=== PATIENT | male | born 1995 | race Caucasian/White ===

== ENCOUNTER 2019-04-28 11:44 | Outpatient (CLI) | payer BC, SELFPAY ==
--- NOTE | ~2019-04-28 | XR_ITS ---
EXAMINATION: XR chest 2V DATE: 04/28/2019 12:05 INDICATION: Cough. TECHNIQUE: Frontal and lateral views of the chest were obtained. COMPARISON: Chest 2 views 05/08/2014 FINDINGS: The chest demonstrates clear lungs without pneumonia, pleural effusion, or pneumothorax. Th e heart size is normal. IMPRESSION: 1. No acute cardiopulmonary disease. Reviewed, dictated and finalized at location A. ING SUPERVISOR
[2019-04-28 11:59] LABS: Basophils Absolute Auto 0.05 K/mm3 (0.00-0.10); Basophils Percent Auto 0.8 % (0.0-1.0); Eosinophils Absolute Auto 0.15 K/mm3 (0.02-0.50); Eosinophils Percent Auto 2.5 % (1.0-6.0); Hematocrit 46.2 % (40.0-54.0); Hemoglobin 15.8 g/dL (14.0-18.0); Immature Granulocyte Absolute 0.04 K/mm3 (0.00-0.00); Immature Granulocyte Percent A 0.7 % (0.0-0.0); Lymphocytes Absolute Auto 1.05 K/mm3 (1.10-4.50); Lymphocytes Percent Auto 17.8 % (18.0-42.0); Mean Corpuscular HGB Conc 34.2 g/dL (32.0-36.0); Mean Corpuscular Hemoglobin 27.4 pg (27.0-31.0); Mean Corpuscular Volume 80.2 fL (78.0-102.0); Monocytes Absolute Auto 0.61 K/mm3 (0.10-0.90); Monocytes Percent Auto 10.3 % (2.0-11.0); Neutrophils Percent Auto 67.9 % (50.0-70.0); Platelet Count Result 286 K/mm3 (150-420); Red Blood Count 5.76 M/mm3 (4.70-6.10); Red Cell Distribution Width 12.6 % (11.6-14.4); White Blood Count 5.9 K/mm3 (4.8-10.8)
[2019-04-28 13:27] LABS: Anion Gap 15.4 mmol/L (7-16); Blood Urea Nitrogen 7 mg/dL (7-18); Calcium 8.8 mg/dL (8.5-10.1); Carbon Dioxide 26 mmol/L (21-32); Chloride 101 mmol/L (98-108); Estimated Glomerular Filt Rate > 60; Glucose 198 mg/dL (70-99); Osmolality Calculated 290 mOsm/kg (285-295); Potassium 4.4 mmol/L (3.5-5.1); Sodium 138 mmol/L (136-145)
== END 2019-04-28 11:45 | disposition home or self-care (01) ==
PROVIDERS: PCP Family Medicine; Visit Provider Family Medicine
DX: J01.80 Other acute sinusitis (principal); R05 Cough
CPT/HCPCS: 36415; 71046; 80048; 85025

== ENCOUNTER 2019-09-16 14:45 | Outpatient (CLI) | payer BC, SELFPAY | END 2019-09-16 14:46 | disposition home or self-care (01) | LOC: CHSLAB 14:47 | PROVIDERS: PCP Family Medicine; Visit Provider Family Medicine | DX: J02.9 Acute pharyngitis, unspecified (principal) | CPT/HCPCS: 87081; 87880 ==

== ENCOUNTER 2019-11-19 10:18 | Outpatient (CLI) | payer BC, SELFPAY ==
[2019-11-19 10:50] LABS: Creatinine Urine 83.37 mg/dL (40-278)
[2019-11-19 10:56] LABS: Microalbumin Urine Random 391.9 mg/L
== END 2019-11-19 10:19 | disposition home or self-care (01) ==
PROVIDERS: PCP Family Medicine; Visit Provider Internal Medicine Endocrinology, Diabetes & Metabolism
DX: E10.69 Type 1 diabetes mellitus with other specified complication (principal); E78.5 Hyperlipidemia, unspecified
CPT/HCPCS: 82043

== ENCOUNTER 2019-12-27 14:44 | Outpatient (CLI) | payer BC, SELFPAY ==
[2019-12-29 11:16] LABS: SARS-CoV-2 RNA PCR Negative
== END 2019-12-27 14:45 | disposition home or self-care (01) ==
LOC: CHSLAB 14:46
PROVIDERS: PCP Family Medicine; Visit Provider Family Medicine
DX: Z20.828 Contact with and (suspected) exposure to other viral communicable diseases (principal)
CPT/HCPCS: 87635; C9803; U0003

== ENCOUNTER 2020-03-26 15:35 | Outpatient (CLI) | payer BC, SELFPAY ==
[2020-03-26 16:04] LABS: Basophils Absolute Auto 0.07 K/mm3 (0.00-0.10); Basophils Percent Auto 0.7 % (0.0-1.0); Eosinophils Absolute Auto 0.04 K/mm3 (0.02-0.50); Eosinophils Percent Auto 0.4 % (1.0-6.0); Hematocrit 47.2 % (40.0-54.0); Hemoglobin 15.8 g/dL (14.0-18.0); Immature Granulocyte Absolute 0.04 K/mm3 (0.00-0.00); Immature Granulocyte Percent A 0.4 % (0.0-0.0); Lymphocytes Percent Auto 27.2 % (18.0-42.0); Mean Corpuscular HGB Conc 33.5 g/dL (32.0-36.0); Mean Corpuscular Hemoglobin 27.3 pg (27.0-31.0); Mean Corpuscular Volume 81.7 fL (78.0-102.0); Monocytes Absolute Auto 0.55 K/mm3 (0.10-0.90); Monocytes Percent Auto 5.5 % (2.0-11.0); Neutrophils Absolute Auto 6.5 K/mm3 (1.7-7.2); Neutrophils Percent Auto 65.8 % (50.0-70.0); Platelet Count Result 376 K/mm3 (150-420); Red Blood Count 5.78 M/mm3 (4.70-6.10); Red Cell Distribution Width 12.8 % (11.6-14.4); White Blood Count 9.9 K/mm3 (4.8-10.8)
[2020-03-26 17:02] LABS: Alanine Aminotransferase 34 U/L (16-63); Albumin Level 3.5 g/dL (3.4-5.0); Alkaline Phosphatase 120 U/L (46-116); Anion Gap 7 mmol/L (8-16); Aspartate Amino Transferase 14 U/L (15-37); Bilirubin,Total 0.4 mg/dL (0.00-1.00); Blood Urea Nitrogen 8 mg/dL (7-18); Calcium 8.9 mg/dL (8.5-10.1); Carbon Dioxide 29 mmol/L (21-32); Chloride 101 mmol/L (98-108); Estimated Glomerular Filt Rate > 60; Glucose 170 mg/dL (70-99); Osmolality Calculated 286 mOsm/kg (285-295); Sodium 137 mmol/L (136-145); Thyroid Stimulating Hormone 1.82 uIU/mL (0.36-3.74); Total Protein 7.5 g/dL (6.4-8.2)
== END 2020-03-26 15:36 | disposition home or self-care (01) ==
PROVIDERS: PCP Family Medicine; Visit Provider Internal Medicine Endocrinology, Diabetes & Metabolism
DX: E10.69 Type 1 diabetes mellitus with other specified complication (principal); E78.5 Hyperlipidemia, unspecified
CPT/HCPCS: 36415; 80053; 84443; 85025

== ENCOUNTER 2020-03-29 16:55 | Outpatient (CLI) | payer BC, SELFPAY | END 2020-03-29 16:56 | disposition home or self-care (01) | LOC: CHSLAB 16:56 | PROVIDERS: PCP Family Medicine; Visit Provider Internal Medicine Endocrinology, Diabetes & Metabolism | DX: E10.69 Type 1 diabetes mellitus with other specified complication (principal); E78.5 Hyperlipidemia, unspecified | CPT/HCPCS: 36415; 82530 ==

== ENCOUNTER 2020-04-24 21:59 | Emergency (ER) | payer BC, SELFPAY ==
--- NOTE | ~2020-04-24 | XR_ITS ---
EXAMINATION: XR knee RT 3V DATE: 04/24/2020 22:41 INDICATION: Right knee pain TECHNIQUE: Five views of the right knee were obtained. COMPARISON: None. FINDINGS: Alignment is normal. No fracture or osteochondral lesion. Joint spaces are normal with no e rosions. No joint effusion/synovitis. Soft tissues are unremarkable. IMPRESSION: 1. No acute osseous abnormality. Reviewed, dictated and finalized at location A. TIC SURGERY ASSISTANT
[2020-04-24 22:11] VITALS: BP 143/106; PULSE 97; RESP 20; TEMP 36.7; O2SAT 97
--- NOTE | 2020-04-24 22:21 | ED.LOWEXIN ---
HPI - Extremity Injury (Lower) General Chief Complaint: Extremity Injury, Lower Stated Complaint: right knee pain Time Seen by Provider: 04/24/20 22:15 Source: patient Mode of arrival: ambulatory Limitations: no limitations History of Present Illness HPI Narrative: 24-year-old man comes in today complaining of right knee pain with ambulation started yesterday after he slipped on some ice and fell upon it. Patient states that it feels warm and swollen and that he has an abrasion on the front. He denies any other injury. He denies prior knee injury or pain. complaint: knee injury Onset (ago): day(s) (1) Injury: Right: knee Type of Injury: blunt Place: home Severity: moderate Relieving factors: rest Exacerbating factors: weight bearing Context: fall and direct blow Associated symptoms: swelling and able to partially bear weight Other symptoms: none Related Data Home Medications Medication Instructions Recorded Confirmed atorvastatin 80 mg PO DAILY 04/24/20 04/24/20 insulin aspart U-100 See Rx Instructions .ROUTE .COMPLEX 04/24/20 04/24/20 losartan 100 mg PO DAILY 04/24/20 04/24/20 Allergies Allergy/AdvReac Type Severity Reaction Status Date / Time No Known Allergies Allergy Unverified 04/24/20 22:16 Review of Systems Constitutional: Constitutional: Denies chills and Denies fever(s) ENT: Denies nasal congestion and Denies sore throat Cardiovascular: Cardiovascular: Denies chest pain and Denies radiating jaw, neck or arm pain Respiratory: Respiratory: Denies cough, Denies dyspnea and Denies wheezing Gastrointestinal: Gastrointestinal: Denies abdominal pain, Denies nausea and Denies vomiting Musculoskeletal: Musculoskeletal: Denies back pain, Reports arthralgias and Reports joint swelling Integumentary/Breasts: Skin/Breast: Denies pruritus, Denies rash and Denies skin ulcer Neurologic: Denies vertigo, Denies dizziness and Denies syncope Hematologic/Lymphatic: Hematologic/Lymphatic: Denies easy bleeding and Denies easy bruising Allergic/Immunologic: Allergic/Immunologic: Denies lip swelling and Denies throat swelling PMFSH Past Medical History Medical History Dyslipidemia Hypertension Type 1 diabetes mellitus Social History Social History (Updated 04/24/20 @ 22:25 by Neal Flores MD) Smoking status: Current every day smoker Alcohol intake: current Substance use: current Substance use type: marijuana Living arrangements: with family Gender identity (if verbalized by the patient): Male Exam Const: General: healthy appearing, no acute distress and alert Nutritional Appearance: obese Orientation/consciousness: patient oriented x3 Limitations: no limitations Other: Mild acute distress. Eyes: Conjunctivae: conjunctivae normal Pupils: Equal, round and reactive pupils present EOM: EOMs intact bilaterally Resp: Effort & Inspection: normal respiratory effort and not labored Auscultation: clear to auscultation bilaterally, no rales, no rhonchi and no wheezes Cardio: Rate: regular rate Rhythm: regular rhythm Heart sounds: no murmurs Skin: General skin exam: normal color, no jaundice and no pallor Rashes: no rashes Neuro: General: patient oriented x3, moves all extremities and no focal motor deficits Cranial nerves: Yes Nystagmus not present Gait exam (Neuro): Normal gait present Extrem: General: normal to inspection and no clubbing, cyanosis or edema Other: Tenderness palpation the right knee at the anterior joint line medial and lateral. Only mild tenderness palpation the right patella. There is no laxity to varus or valgus stress and negative Britni's test. There is bruising and tenderness over the right proximal tibia anteriorly. Psych: Appearance: grossly normal and well kempt Mental Status: mental status grossly normal Affect: normal affect Attitude: cooperative Thought content: Yes Normal thought cont
[2020-04-24 22:52] VITALS: BP 146/90; PULSE 87; RESP 20; TEMP 37.1; O2SAT 97
--- NOTE | 2020-04-24 22:56 | PC.NURSE ---
jennifer wrap to right knee.
== END 2020-04-24 23:07 | disposition home or self-care (01) ==
PROVIDERS: Emergency Provider Emergency Medicine; PCP Family Medicine
DX: S83.91XA Sprain of unspecified site of right knee, initial encounter (principal); W00.0XXA Fall on same level due to ice and snow, initial encounter
CPT/HCPCS: 73562; 99283

== ENCOUNTER 2020-11-09 10:34 | Outpatient (CLI) | payer BC, SELFPAY ==
[2020-11-09 11:37] LABS: Alanine Aminotransferase 30 U/L (16-63); Albumin Level 3.6 g/dL (3.4-5.0); Alkaline Phosphatase 129 U/L (46-116); Anion Gap 8 mmol/L (8-16); Aspartate Amino Transferase 10 U/L (15-37); Bilirubin,Total 0.6 mg/dL (0.00-1.00); Blood Urea Nitrogen 12 mg/dL (7-18); Calcium 8.8 mg/dL (8.5-10.1); Carbon Dioxide 30 mmol/L (21-32); Chloride 99 mmol/L (98-108); Estimated Glomerular Filt Rate > 60; Glucose 185 mg/dL (70-99); Osmolality Calculated 288 mOsm/kg (285-295); Potassium 3.9 mmol/L (3.5-5.1); Sodium 137 mmol/L (136-145); Total Protein 7.4 g/dL (6.4-8.2)
[2020-11-12 17:05] LABS: Testosterone Free 50.9 pg/mL (35.0-155.0); Testosterone Total 356 ng/dL (250-1100)
== END 2020-11-09 10:35 | disposition home or self-care (01) ==
PROVIDERS: PCP Family Medicine; Visit Provider Internal Medicine Endocrinology, Diabetes & Metabolism
DX: E10.65 Type 1 diabetes mellitus with hyperglycemia (principal)
CPT/HCPCS: 36415; 80053; 82088; 84244; 84402; 84403

== ENCOUNTER 2022-03-22 16:11 | Emergency (ER) | payer BC, SELFPAY ==
[2022-03-22] VITALS (20 sets, daily range): BP systolic 139–171; BP diastolic 74–103; PULSE 90–105; RESP 20; TEMP 36.2; O2SAT 93–97
--- NOTE | 2022-03-22 16:17 | ED.DIZZY ---
HPI - Dizziness General Chief Complaint: Dizziness Stated Complaint: dizziness, headache Time Seen by Provider: 03/22/22 16:16 Source: patient Mode of arrival: ambulatory History of Present Illness HPI Narrative: 26-year-old male with a history of hypertension, diabetes mellitus type 1 on an insulin pump presents to the ER with a 4 hour history of -- dizziness- The patient felt lightheaded. No vertigo. -- headache -- not feeling well since early hours of the morning. -- Palpitation -- sweating the blood sugar on in the ER was noted to be 58. No prior episodes of hypoglycemia. The patient was noted to have acute bronchitis with difficulty breathing after Johanna for which he was treated with amoxicillin and steroids. His steroids finished yesterday. MD elicited complaint: dizziness and lightheadedness Pertinent past history: hypoglycemia Onset (ago): hour(s) ( Started 16 hours ago.) Timing: gradual onset Severity: mild Description: lightheadedness, off-balance and near-syncope History of similar symptoms: No Exacerbating factors: nothing Relieving factors: nothing Associated symptoms: denies other symptoms Related Data Home Medications Medication Instructions Recorded Confirmed atorvastatin 80 mg tablet 80 mg PO DAILY 04/24/20 03/22/22 insulin aspart U-100 100 unit/mL See Rx Instructions .Route .COMPLEX 04/24/20 03/22/22 subcutaneous solution losartan 100 mg tablet 100 mg PO DAILY 04/24/20 03/22/22 chlorthalidone 25 mg tablet 25 mg PO DAILY 03/22/22 03/22/22 omeprazole 40 mg capsule,delayed 40 mg PO DAILY 03/22/22 03/22/22 release tirzepatide 2.5 mg/0.5 mL 2.5 mg subcut WEEKLY 03/22/22 03/22/22 subcutaneous pen injector (Mounjaro) varenicline 0.5 mg (11)-1 mg (42) See Rx Instructions .Route .COMPLEX 03/22/22 03/22/22 tablets in a dose pack Allergies Allergy/AdvReac Type Severity Reaction Status Date / Time No Known Allergies Allergy Verified 03/22/22 16:28 Review of Systems Review of Systems: All systems reviewed & are unremarkable except as noted in HPI and below Constitutional: Constitutional: Reports as per HPI and Reports no additional constitutional complaints Comments: weakness, lightheadedness diaphoresis now resolved Eyes: Eyes: Reports as per HPI and Reports no additional eye complaints ENT: Reports system reviewed and no additional complaints, except as documented and Reports as per HPI Cardiovascular: Cardiovascular: Reports as per HPI, Reports no additional cardiovascular complaints and Reports rapid heart rate Respiratory: Respiratory: Reports as per HPI and Reports no additional respiratory complaints Gastrointestinal: Gastrointestinal: Reports as per HPI and Reports no additional gastrointestinal complaints Genitourinary: Genitourinary: Reports no additional male genitourinary complaints and Reports as per HPI Musculoskeletal: Musculoskeletal: Reports no additional musculoskeletal complaints and Reports as per HPI Integumentary/Breasts: Skin/Breast: Reports system reviewed and no additional complaints, except as docu and Reports as per HPI Neurologic: Reports system reviewed and no additional complaints, except as documented and Reports as per HPI Psychiatric: Psychiatric: Reports no additional psychiatric complaints and Reports as per HPI Endocrine: Endocrine: Reports no additional endocrine complaints and Reports as per HPI Hematologic/Lymphatic: Hematologic/Lymphatic: Reports no additional hematologic/lymphatic complaints and Reports as per HPI Allergic/Immunologic: Allergic/Immunologic: Reports no additional allergic/immunologic complaints and Reports as per HPI [facility] Past Medical History Medical History Dyslipidemia Hypertension Type 1 diabetes mellitus Social History Social History Smoking status: Current every day smoker Alcohol intake:
[2022-03-22 16:47] LABS: Basophils Percent Auto 0.9 % (0.0-1.0); Eosinophils Absolute Auto 0.05 K/mm3 (0.02-0.50); Eosinophils Percent Auto 0.4 % (1.0-6.0); Hematocrit 45.6 % (40.0-54.0); Immature Granulocyte Absolute 0.06 K/mm3 (0.00-0.00); Immature Granulocyte Percent A 0.5 % (0.0-0.0); Lymphocytes Absolute Auto 2.97 K/mm3 (1.10-4.50); Lymphocytes Percent Auto 26.3 % (18.0-42.0); Mean Corpuscular HGB Conc 32.9 g/dL (32.0-36.0); Mean Corpuscular Hemoglobin 26.6 pg (27.0-31.0); Mean Corpuscular Volume 80.9 fL (78.0-102.0); Mean Platelet Volume 9.9 fl (8.7-11.0); Monocytes Percent Auto 5.3 % (2.0-11.0); Neutrophils Absolute Auto 7.5 K/mm3 (1.7-7.2); Neutrophils Percent Auto 66.6 % (50.0-70.0); Platelet Count Result 338 K/mm3 (150-420); Red Blood Count 5.64 M/mm3 (4.70-6.10); Red Cell Distribution Width 13.1 % (11.6-14.4); White Blood Count 11.3 K/mm3 (4.8-10.8)
--- NOTE | 2022-03-22 16:47 | PC.NURSE ---
PT REPORTS HE IS FEELING LESS FOGGY AND CAN THINK BETTER. SANDWICH, CHIPS, COTTAGE CHEESE, AND MILK PROVIDED. PT IS AWAITING LAB RESULTS AT THIS TIME. VSS PER MONITOR. WILL CONTINUE TO MONITOR.
--- NOTE | 2022-03-22 16:49 | PC.NURSE ---
PT INSULIN PUMP WAS SHUT OFF UPON TRIAGE.
[2022-03-22 17:03] LABS: Glucose Point of Care 100 mg/dl (65-105)
[2022-03-22 17:05] LABS: Alanine Aminotransferase 18 U/L (16-63); Albumin Level 3.1 g/dL (3.4-5.0); Alkaline Phosphatase 99 U/L (46-116); Aspartate Amino Transferase < 10 U/L (15-37); Bilirubin,Total 0.3 mg/dL (0.00-1.00); Blood Urea Nitrogen 8 mg/dL (7-18); Calcium 8.4 mg/dL (8.5-10.1); Carbon Dioxide 29 mmol/L (21-32); Estimated CRCL calculation 156 ml/min; Estimated Glomerular Filt Rate > 60; Glucose 74 mg/dL (70-99); Total Protein 7.3 g/dL (6.4-8.2)
--- NOTE | 2022-03-22 18:00 | PC.NURSE ---
URINE SPECIMEN OBTAINED AND SENT TO LAB. PT IS RESTING ON STRETCHER WITH LIGHTS OFF. NAD NOTED. PT REPORTS HE IS FEELING MUCH BETTER. WILL CONTINUE TO MONITOR.
[2022-03-22 18:04] LABS: Add Urine Microscopic? YES; Appearance Urine Clear (Clear); Bilirubin Urine Negative (Negative); Blood Urine 1+ (Negative); Color Urine Light Yellow (Yellow); Glucose Urine UA Negative (Negative); Ketones Urine Negative (Negative); Leukocyte Esterase Ur Negative LEU/UL (Negative); Nitrate Urine Negative (Negative); Protein Urine 2+ (Negative); Specific Grav Ur <= 1.005 (1.010-1.020); Urobilinogen Urine 0.2 mg/dL (0.2-1.0); pH Urine 6.5 (5.0-8.0)
[2022-03-22 18:16] LABS: Osmolality Calculated 285 mOsm/kg (285-295); Potassium 3.4 mmol/L (3.5-5.1); Sodium 139 mmol/L (136-145)
[2022-03-22 18:17] LABS: Anion Gap 9 mmol/L (8-16); Chloride 101 mmol/L (98-108)
[2022-03-22 18:43] LABS: Bacteria Urine Trace /hpf; RBC Urine 0-2 /hpf (0-2); Squamous Epithelial Cell Urine Rare /hpf (Few); WBC Urine 0-3 /hpf (0-3)
[2022-03-22 18:55] LABS: Glucose Point of Care 205 mg/dl (65-105)
[2022-03-22] MEDS: POTASSIUM CHLORIDE 20 MEQ TABLET 40 MEQ PO (18:58)
== END 2022-03-22 19:00 | disposition home or self-care (01) ==
PROVIDERS: Emergency Provider Internal Medicine Critical Care Medicine; PCP Family Medicine
DX: E10.649 Type 1 diabetes mellitus with hypoglycemia without coma (principal); I10 Essential (primary) hypertension; E78.5 Hyperlipidemia, unspecified; F17.200 Nicotine dependence, unspecified, uncomplicated; Z79.4 Long term (current) use of insulin; Z96.41 Presence of insulin pump (external) (internal)
CPT/HCPCS: 36415; 80053; 81001; 82948; 85025; 99283; A9270

== ENCOUNTER 2023-09-21 21:46 | Emergency (ER) | payer BC, SELFPAY ==
--- NOTE | ~2023-09-21 | XR_ITS ---
XR chest 1V portable Ordering provider: Rodolfo Zendejas MD History: 28 years Male with . shortness of breath. . Comparison: April 28, 2019 FINDINGS: MEDIASTINUM: The cardiac silhouette is not enlarged. LUNGS: No infiltrates, effusions or pneumothorax. Minimal interstitial changes bilaterally. OTHER: No free air under the diaphragm. IMPRESSION: Minimal interstitial changes bilaterally. Pneumonitis cannot be excluded. Clinical correlation advise d. Reviewed, dictated and finalized at location A. IMPRESSION: Minimal interstitial changes bilaterally. Pneumonitis cannot be excluded. Clini amrita correlation advised.
[2023-09-21 21:47] VITALS: BP 109/91; PULSE 99; RESP 19; TEMP 36.1; O2SAT 98
[2023-09-21 22:00] VITALS: BP 138/92; PULSE 92; RESP 20; O2SAT 98
--- NOTE | 2023-09-21 22:02 | ECG_ITS ---
Test Date: 2023-09-21 22:12:27 Measurements Intervals [place] Rate: 86 P: 30 MN: 168 QRS: 40 QRSD: 90 T: 38 QT: 339 QTc: 406 Interpretive Statements SINUS RHYTHM NONSPECIFIC ST ELEVATION IN ANTEROLAT/INF LEADS BORDERLINE ECG No previous ECG available for comparison Electronically Signed On 09-22-2023 08:55:20 CDT by Chuy Stiles D.O.
[2023-09-21 22:10] LABS: Basophils Absolute Auto 0.09 K/mm3 (0.00-0.10); Basophils Percent Auto 0.7 % (0.0-1.0); Eosinophils Percent Auto 0.8 % (1.0-6.0); Hematocrit 45.4 % (40.0-54.0); Hemoglobin 15.3 g/dL (14.0-18.0); Immature Granulocyte Absolute 0.06 K/mm3 (0.00-0.00); Immature Granulocyte Percent A 0.5 % (0.0-0.0); Lymphocytes Absolute Auto 3.64 K/mm3 (1.10-4.50); Lymphocytes Percent Auto 29.5 % (18.0-42.0); Mean Corpuscular HGB Conc 33.7 g/dL (32-36); Mean Corpuscular Hemoglobin 26.8 pg (27.0-31.0); Mean Corpuscular Volume 79.6 fL (78.0-102.0); Monocytes Percent Auto 5.7 % (2.0-11.0); Neutrophils Absolute Auto 7.76 K/mm3 (1.70-7.20); Neutrophils Percent Auto 62.8 % (50.0-70.0); Platelet Count Result 347 K/mm3 (150-420); Red Cell Distribution Width 12.9 % (11.6-14.4); White Blood Count 12.4 K/mm3 (4.8-10.8)
[2023-09-21 22:26] LABS: Alanine Aminotransferase 22 U/L (16-63); Alkaline Phosphatase 137 U/L (46-116); Anion Gap 9 mmol/L (4-12); Aspartate Amino Transferase 18 U/L (15-37); Bilirubin,Total 0.4 mg/dL (0.00-1.00); Blood Urea Nitrogen 9 mg/dL (7-18); Calcium 8.6 mg/dL (8.5-10.1); Carbon Dioxide 27 mmol/L (21-32); Chloride 98 mmol/L (98-108); Estimated CRCL calculation 156 ml/min; Estimated Glomerular Filt Rate > 60; Glucose 253 mg/dL (70-99); NT Pro B Type Natriuretic Pept 59 pg/mL (0-125); Osmolality Calculated 285 mOsm/kg (285-295); Sodium 134 mmol/L (136-145); Total Protein 7.5 g/dL (6.4-8.2); Troponin I < 4.0 ng/L (0.00-60.4)
[2023-09-21 22:27] LABS: Potassium 3.8 mmol/L (3.5-5.1)
--- NOTE | 2023-09-21 22:44 | ED.ARRPALP ---
HPI - Arrhythmia/Palpitations General Chief Complaint: Arrhythmia/Palpitations Stated Complaint: heart palpitations/ shortness of breath Source: patient Mode of arrival: ambulatory Limitations: no limitations History of Present Illness HPI narrative: patient is a 28-year-old male with a significant past medical history that presents today with palpitations. He states that he today was sitting there and felt too different times arrhythmias and had some shortness of breath during the [place] has. He says he has had these in the past before last time this happened was about a year ago. He was worried because the arrhythmia as he said they lasted around 5-15 seconds and then he had a little bit of shortness of breath associated with it. He wanted to get checked out to make sure his heart is okay. complaint: skipped beats and palpitations Onset (ago): hour(s) Duration: now resolved Severity: mild Context: occurred during rest Associated symptoms: denies other symptoms Related Data Home Medications Medication Instructions Recorded Confirmed atorvastatin 80 mg tablet 80 mg PO DAILY 04/24/20 09/21/23 insulin aspart U-100 100 unit/mL See Rx Instructions .Route .COMPLEX 04/24/20 09/21/23 subcutaneous solution losartan 100 mg tablet 100 mg PO DAILY 04/24/20 09/21/23 chlorthalidone 25 mg tablet 25 mg PO DAILY 03/22/22 09/21/23 omeprazole 40 mg capsule,delayed 40 mg PO DAILY 03/22/22 09/21/23 release tirzepatide 2.5 mg/0.5 mL 2.5 mg subcut WEEKLY 03/22/22 09/21/23 subcutaneous pen injector (Tl) varenicline 0.5 mg (11)-1 mg (42) See Rx Instructions .Route .COMPLEX 03/22/22 09/21/23 tablets in a dose pack Allergies Allergy/AdvReac Type Severity Reaction Status Date / Time No Known Allergies Allergy Verified 09/21/23 21:58 Review of Systems Review of Systems: All systems reviewed & are unremarkable except as noted in HPI and below Constitutional: Constitutional: Reports as per HPI Eyes: Eyes: Reports no additional eye complaints ENT: Reports system reviewed and no additional complaints, except as documented Cardiovascular: Cardiovascular: Reports as per HPI Respiratory: Respiratory: Reports as per HPI Gastrointestinal: Gastrointestinal: Reports no additional gastrointestinal complaints Genitourinary: Genitourinary: Reports no additional male genitourinary complaints Musculoskeletal: Musculoskeletal: Reports no additional musculoskeletal complaints Integumentary/Breasts: Skin/Breast: Reports system reviewed and no additional complaints, except as docu Neurologic: Reports system reviewed and no additional complaints, except as documented Psychiatric: Psychiatric: Reports no additional psychiatric complaints Endocrine: Endocrine: Reports no additional endocrine complaints Hematologic/Lymphatic: Hematologic/Lymphatic: Reports no additional hematologic/lymphatic complaints Allergic/Immunologic: Allergic/Immunologic: Reports no additional allergic/immunologic complaints [facility] Past Medical History Medical History Dyslipidemia Hypertension Type 1 diabetes mellitus Social History Social History Smoking status: Current every day smoker Alcohol intake: current Substance use: current Substance use type: marijuana Living arrangements: with family Gender identity (if verbalized by the patient): Male Exam Const: General: healthy appearing Nutritional Appearance: well nourished Orientation/consciousness: patient oriented x3 HENMT: Head: normal to inspection Ears: external ears normal Face/Nose/Sinus: Normal external nose present Face and sinus: normal facial exam Eyes: Conjunctivae: conjunctivae normal Pupils: Equal, round and reactive pupils present EOM: EOMs intact bilaterally Neck: Neck: normal visual inspection Chest: Chest palpation & inspection: normal inspec
[2023-09-21 22:50] VITALS: BP 134/87; PULSE 94; RESP 20; O2SAT 95
--- NOTE | 2023-09-21 22:50 | PC.NURSE ---
urine taken to lab by tech. Daniela dark color, foul odor, cloudy
== END 2023-09-21 23:03 | disposition home or self-care (01) ==
PROVIDERS: Emergency Provider Family Medicine; PCP Family Medicine
DX: I49.3 Ventricular premature depolarization (principal); I49.9 Cardiac arrhythmia, unspecified; E78.5 Hyperlipidemia, unspecified; I10 Essential (primary) hypertension; E10.9 Type 1 diabetes mellitus without complications; Z79.899 Other long term (current) drug therapy; Z79.4 Long term (current) use of insulin; F17.200 Nicotine dependence, unspecified, uncomplicated
CPT/HCPCS: 36415; 71045; 80053; 83880; 84484; 85025; 93005; 99284

== ENCOUNTER 2024-11-28 16:16 | Outpatient (CLI) | payer OTHER, SELFPAY ==
--- NOTE | ~2024-11-28 | XR_ITS ---
EXAMINATION: XR chest 2V, 11/28/2024 16:45 CDT HISTORY: Lt. sided chest pain/ SOB x2 months COMPARISON: No comparisons available. Technique: 2 views obtained. Findings: The lungs are clear, no effusion. No pneumothorax. Heart is normal size. Mediastinal and hilar contours are within normal limits. Bony thorax no acute abnormality. Impression: No acute cardiopulmonary abnormality. Reviewed, dictated and finalized at location P. Impression: No acute cardiopulmonary abnormality.
--- OUTSIDE RECORDS SUMMARY | 2024-11-28 16:22 | XMS_ITS | Clinical Summary ---
Author Organization [facility] Address [address] [place] [address] Care Team Providers Care Art Department Head Name Role Phone Judd Patrick MD Primary Care Provider [phone] Source Comments [facility],non-owned Affiliates and Associated Physician Practices is amultiple site organization consisting of ambulatory clinics and hospital sitesin [place], [place], [place] and [place]. This disclosure is being madepursuant to the Care Everywhere program and may not contain all information available regarding this patient. Last updated 17.[facility] Allergies No known active allergies Medications * Be aware that medications may not be up to date on this document. Alwaysverify current medications with the patient. Blood Glucose Monitoring Suppl (ONE TOUCH ULTRA MINI) W/DEVICE KITIndications:Type I (juvenile type) diabetes mellitus without mention of complication, not stated as uncontrolled (HCC) Use 1 Each 4 times daily. 1 Kit 1 013 Active clonazePAM (KLONOPIN) 0.5 MG tablet Take 1 mg by mouth 2 times daily Active acetone,urine, (KETOSTIX) stripIndications:Diabet es mellitus type 1, uncontrolled Use as needed (use when blood sugar is greater than 250 or when ill. ) 100 Strip 11 015 Active Alcohol Swabs 70 %Indications:Diabetes mellitus type 1, uncontrolled Use one for one use up to four times a day 100 Each 1 015 Active insulin glargine (LANTUS) vialIndications:Diabete s mellitus type 1, uncontrolled Inject 70 units at noon daily or as directed. 3 Vial 11 Active insulin lispro (HUMALOG KWIKPEN) penIndications:Diabetes mellitus type 1, uncontrolled Inject 20 units at lunch and 30 units at dinner or as directed. Must call to schedule an appointment before further refills. 2 Box 11 Active Insulin Pen Needle (BD PEN NEEDLE KRISTOFER U/F) 32G X 4 MM MISCIndications:Diabete s mellitus type 1, uncontrolled Use 1 Each as needed For use with injections 3-6 times daily. 200 Each Active ONETOUCH ULTRA TEST STRIPS test stripIndications:Diabet es mellitus type 1, uncontrolled Use for blood glucose monitoring 5-9 times/day. 200 Strip Active ONETOUCH DELICA LANCETS 33G MISCIndications:Diabete s mellitus type 1, uncontrolled Use 1 Each 4 times daily with meals 200 Each Active Blood Glucose Monitoring Suppl (ONE TOUCH ULTRA MINI) W/DEVICE KIT Use for blood glucose monitoring. 1 Kit 1 Active insulin lispro (HUMALOG) vialIndications:Type 1 diabetes mellitus with persistent microalbuminuria (HCC) To use in insulin pump, 120 units daily 4 Vial 11 Active atorvastatin (LIPITOR) 10 MG tabletIndications:Hyper cholesterolemia with hypertriglyceridemia Take 1 Tab by mouth at bedtime 30 Tab 0 016 Active enalapril (VASOTEC) 10 MG tabletIndications:Type 1 diabetes mellitus with persistent microalbuminuria (HCC) Take 1 Tab by mouth once daily 30 Tab 4 Active LATUDA 80 MG tablet TAKE 1 TABLET BY MOUTH EVERY EVENING WITH FOOD 0 Active traZODone (DESYREL) 100 MG tablet TAKE 1/2 TO 1 TABLET BY MOUTH AT BEDTIME NEEDED FOR INSOMNIA 0 Active hydrOXYzine pamoate (VISTARIL) 50 MG capsule TAKE ONE CAPSULE BY MOUTH TWICE A DAY NEEDED FOR ANXIETY 0 Active Blood Glucose Monitoring Suppl (FREESTYLE LITE) LANETTE Use to test blood sugar 5-9 times a day or as directed. 1 Device 1 Active FREESTYLE LITE STRIPS test strip Use to test blood sugar 5-9 times a day or as directed. 200 Strip 5 Active FREESTYLE LANCETS MISC Use 5-9 daily. 200 Each 5 016 Active glucagon (GLUCAGON EMERGENCY) injection Inject 1 mg into muscle as needed 2 Kit 0 Active LANTUS vial To use in the event of pump failure. 1 Vial 1 Active Insulin Syringe-Needle U-100 (BD INSULIN SYRINGE ULTRAFINE) 31G X 15/64 1 ML syringesIndications:Unc ontrolled type 1 diabetes mellitus without complication Use to administer Lantus once daily or as directed. 100 Syringe 017 Active Active Problems Problem Noted Date Diagnosed Date Diabetes mellitus type 1, uncontrolled 5 Knee pain 12/09/2013 Chest pain 02/13/2013 Hypercholesterolemia 10/15/2012 Overview (06/19/2014): [place] poorly controlled type I diabetes mellitus; euthyroid. Assessment & Plan (09/11/2014 11:14 AM CDT): 1. Atorvastatin 10 mg daily. 2. Return appointment in two months. Assessment & Plan (06/19/2014 3:33 PM CDT): 1. Atorvastatin 10 mg daily. 2. Return appointment in two months. Assessment & Plan (12/10/2013 9:46 PM CDT): Lipitor daily Assessment & Plan (12/01/2013 4:00 PM CDT): 1. Atorvastatin 10 mg daily. 2. Fasting lipid profile in two months before next office appointment. 3. Low fat diet. Type 1 diabetes mellitus 06/12/2001 Overview (09/29/2015): Diagnosed 06/12/2001 Microalbuminuria: Mar, 2012 - spot urine microalbumin/creat 116 mg/g (< 30); Oct, 2012 - spot urine microalbumin/creat 220 mg/g (< 30) and hypertension - started enalapril 5 mg daily. Assessment & Plan (09/11/2014 11:17 AM CDT): Lantus 70 units at noon Novolog/humalo units at lunch; 30 units at supper Mealtime correction: 1 unit Novolog/Humalog for every 50 mg/dL over 150 mg/dL. Blood glucose target range: 70-150 mg/dL Insulin injections given by: self Insulin injection sites: arm(s), lower leg(s) Avoid giving insulin injections in the abdominal wall - lipohypertrophied areas Consistent carbohydrate counting meal planning (gluten free no) Avoid/minimize between meal snacking without taking insulin. Per the [place] [employer] practice guidelines [Diabetes Care 2015 38 (suppl 1): S1-S94], people with type 1 diabetes mellitus on multiple-dose insulin or insulin pump therapy should perform SMBG prior to meals and snacks, occasionally post-prandial, at bedtime, prior to exercise, when they suspect low blood glucose, after treating low blood glucose until they are normoglycemic, and prior to critical tasks such as driving. Record home blood glucose records in a logbook and bring this logbook to each office visit. Obtain and wear medic alert identification at all times. Schedule appointment for annual eye exam: no; Last eye exam: June 2014 Influenza immunization: not done (at this office visit) Follow-up by telephone (office number: [phone], option #4 or fax number: [phone]) in 2 weeks to review Zain's interval home blood glucose records and make any additional insulin dose adjustments. Return appointment in 2 months Enalapril 5 mg daily. Contact adult corn crop supervisor at in [place], [place] to schedule an outpatient appointment in 1-4 months. Assessment & Plan (06/19/2014 3:21 PM CDT): Lantus 60 units at 12 noon Humalo units at lunch and 30 units at supper Blood glucose target range: 70-150 mg/dL Insulin injections given by: self Insulin injection sites: abdominal wall Avoid giving insulin injections in the n/a - lipohypertrophied areas Consistent carbohydrate counting meal planning (gluten free no) Avoid/minimize between meal snacking without taking insulin. Per the [place] [employer] practice guidelines [Diabetes Care 2015 38 (suppl 1): S1-S94], people with type 1 diabetes mellitus on multiple-dose insulin or insulin pump therapy should perform SMBG prior to meals and snacks, occasionally post-prandial, at bedtime, prior to exercise, when they suspect low blood glucose, after treating low blood glucose until they are normoglycemic, and prior to critical tasks such as driving. Record home blood glucose records in a logbook and bring this logbook to each office visit. Self blood glucose monitoring before meals, HS, and prn (record in logbook). Obtain and wear medic alert identification at all times. Transition visit #1 completed this office visit. Schedule appointment for annual eye exam: no; Last eye exam: March 2014 Influenza immunization: n/a (at this office visit) Follow-up by telephone (office number: [phone], option #4 or fax number: [phone]) in 2 weeks to review Zain's interval home blood glucose records and make any additional insulin dose adjustments. Return appointment in 2 months Assessment & Plan (12/26/2013 8:14 PM CDT): Assessment: Zain is a 18 y.o. male with known type 1 diabetes who is in DKA. Poorly controlled over past year. Plan: - Follow DKA protocol while in DKA - Will resume subcutaneous insulin following discontinuation of insulin drip - Continue diabetes education including nutritional education Assessment & Plan (12/01/2013 4:27 PM CDT): Poor glycemic control. Please call the Sleep Clinic at to make an appointment for a sleep study (schedule sleep study before office appointment). Call Pediatric Nephrology at [phone] to schedule return appointment to follow up urinary protein elevation. Return appointment at outreach offices in [place], [place] (near [facility]) - Dr. Pedro Dwyer [address], [place] [address] Measure blood glucose level at least twice daily and record results in logbook No missed insulin injections between now and next office visit with Dr. Pedro Dwyer Follow-up by telephone in one week to review interval blood glucose levels and to adjust insulin dose. Assessment & Plan (11/26/2013 4:04 AM CDT): Assessment: Zain is a 18 y.o. male with known type 1 diabetes who is currently in DKA. Diagnosed at the age of 5, previous on insulin pump which was discontinued couple months ago. Poorly controlled diabetes with 4 hospitalizations in the past month. Hgb A1C of 11.9. Plan: - Lantus 50 units nightly, will give dose tonight - NPO until DKA resolves - Will resume subcutaneous insulin once DKA resolves Assessment & Plan (07/15/2013 9:27 AM CDT): Assessment: 17y/o male, h/o DM I, HTN, HLD presents with elevated blood sugars, +ketones, AG 23, pH7.35; also stating suicidal ideation. Plan: ENDO- - doesn't appear to be DKA, appears that presentation 2/2 pump failure - home pump settings: Basal rates at 2.10 U/hr. Boluses are: 1u:4gCHO - Received 20u regular insulin and 40u Lantus at OSH, blood sugars coming down - keep NPO for now, water ok, glucose checks q2hr, urine ketones with voids and q4hr - will treat with insulin boluses based urine ketones CV- - Cont home jennifer-i and statin PSYCH- - cont home celexa - suicidal precautions - Intake consulted and are aware, will come see Resolved Problems Problem Noted Date Diagnosed Date Resolved Date DKA (diabetic ketoacidosis) 11/25/2013 07/15/2014 Assessment & Plan (03/12/2014 11:43 AM LAWYER PROBATE): Assessment: 18 yo with known h/o T1DM presented to OSH in DKA due to medication noncompliance. DKA was treated in ED and glucose, potassium, and bicarb have improved overnight with maintenance fluids. Plan: - discontinue fluids - check glucose and administer home dose of humalog before breakfast - ophthalmology consult and exam before discharge - check lipid panel and TSH level before discharge - consult social work for noncompliance and medical neglect - discharge today Assessment & Plan (03/12/2014 5:56 AM LAWYER PROBATE): Assessment: Patient with poorly controlled diabetes type I due to poor medication compliance. Admitted with DKA most likely due to not taking his insulin corrections. Plan: - Admit to inpatient floor - Blood sugars q2h - Repeat BMP in AM - Give home 60 units of lantus now - Continue home insulin humalog 1u:4g carbs and 1u for every 25 over 150 - urine ketones q void - vitals q4h - monitor I/O - NPO until 0700 and then start regular diet - Consider director social consult - Continue IVF D5 1/2NS + 1K acetate and 1K phosphate - zofran PRN Assessment & Plan (12/26/2013 8:10 PM CDT): Assessment: Zain is a known type 1 diabetic who presents in mild DKA with improved blood glucose levels but remains acidotic. Plan: - Admit to endocrinology service, Dr. Blake - Insulin drip at 0.1 units/kg/hr - 1/2NS and D10% 1/2 NS to maintain blood glucose levels with total fluid volume of 230 ml/hr- will start with all dextrose containing fluids due to glucose level of 160 - BMP q 4 hours - Glucose checks q hour - Wean insulin and fluids per DKA protocol - Neuro checks - Urine ketones q void until negative Assessment & Plan (12/10/2013 9:45 PM CDT): Diabetic ketoacidosis in a child with poorly controlled, (but improving), type I diabetes mellitus - which I suspect is secondary to acute gastroenteritis vs missed insulin injections 1. Continuous insulin infusion at 0.1 u/kg/hour 2. IVF - rehydration 1/2 NS with dextrose and potassium phosphate & potassium acetate at 2.5 liter/meter sq/day 3. Serial bedside neurologic assessments to monitor for signs of cerebral edema. 4. Hourly bedside blood glucose measurements 5. Serial basic metabolic panels and u/a's to monitor resolution of metabolic acidosis 6. NPO for the time being. 7. Transition to Lantus and mealtime insulin after metabolic acidosis and hyperglycemia resolved. 8. Serial exams. 9. Begin routine diabetes mellitus education/skills training (carb counting meal planning, calculating insulin doses/drawing up/administering insulin injections, bedside glucose monitoring, signs/symptoms/treatment of hypoglycemia, use/administration of injectable glucagon for severe hypoglycemia). 10. Consistent carb counting meal plan & premeal, HS and 2 am blood glucose monitoring after transition to subq insulin. 11. Consult [employer] Administrator. 12. D/c to home later today if he tolerates full diet 13. D/w pediatric housestaff on rounds. Assessment & Plan (12/10/2013 12:48 AM CDT): Assessment: 18 yo with h/o Type I DM, recently admitted 2 weeks ago in DKA, now admitted again in DKA. Most likely due to noncompliance. Initial blood glucose 499 with elevated anion gap and metabolic acidosis. Does have headache but no AMS concerning for cerebral edema at this time. Will need to monitor closely. Plan: Admit to Blue Team Total IVF rate 235 ml/hr (2.5 L/m2) 1/2 NS with 20 meq/L K Phos and 20 meq/L K Acetate at 235 ml/hr D10 1/2 NS with 20 meq/L K Phos and 20 meq/L K Acetate at bedside Insulin drip 0.1 units/kg/hr Zofran 4 mg q4h prn Bedside glucose q1hr BMP q4h Urine ketones q void Neuro checks q2h Vital signs q2h Continue home medications (lipitor, enalapril, klonopin, Lamictal, lithium) Assessment & Plan (11/26/2013 5:44 PM CDT): Assessment: Zain is a 18 y.o. male with known type 1 diabetes who presented in DKA, now resolved.. Diagnosed at the age of 5, previous on insulin pump which was discontinued couple months ago. Poorly controlled diabetes with 4 hospitalizations in the past month. Hgb A1C of 11.9. Plan: -DKA resolved, no longer on IVF and insulin drip - Lantus 50 units nightly - Carb counting diet -1u of insulin per 4g CHO with meals and snacks -1u of insulin for every 25mg/dL that blood sugar exceeds 150 - Glucose checks hourly 5 times daily (meals, bedtime, and 2 am) - Urine ketones q void until negative -[employer] Administrator consult -Flu shot prior to discharge -Plan for d/c to home today once seen by director social Assessment & Plan (11/26/2013 4:05 AM CDT): Assessment: Zain is a known type 1 diabetic who presents in DKA. Plan: - Admit to endocrinology service, Dr. Peña - Insulin drip at 0.1 units/kg/hr - 1/2NS and D10% 1/2 NS to maintain blood glucose levels between 150 -250 with total fluid volume of 200 ml/hr - BMP Q4H - Glucose checks hourly - Wean insulin and fluids per DKA protocol - Q2H hour neuro checks - Urine ketones q void until negative Immunizations Immunization Administration Dates Next Due INFLUENZA VACCINE, TRIV. (AF LURIA, FLUZONE TRIVALENT; 6MO+) (IIV3) 11/26/2013 INFLUENZA VACCINE 02/13/2013 INFLUENZA VACCINE, QUADR. (F LUZONE; FLULAVAL; FLUARIX; AFLURIA QUADRIVALENT; 6MO+), 0.5 ML (IIV4) 04/01/2015 Family History Medical History Relation Name Comments Thyroid Disease Maternal Grandmother unsp ecified CAD (Coronary Artery Disease) Mother Depression Mother hospitalized on e year ago Hypercholesterolemia Mother Hypertension Mother Relation Name Status Comments Maternal Grandmother Mother Social History Tobacco Use Types Packs/Day Years Used Date Smoking Tobacco: Never Smokeless Tobacco: Never Alcohol Use Standard Drinks/Week Comments No 0 (1 standard drink = 0.6 oz pur e alcohol) Sex and Gender Information Value Date Recorded Sex Assigned at Not on file Legal Sex Male 5:41 AM LAWYER PROBATE Gender Identity Not on file Sexual Orientation Not on file Last Filed Vital Signs Vital Sign Reading Time Taken Comments Blood Pressure 120/76 09/29/2015 1:47 PM CDT Pulse 72 03/12/2014 12:40 PM LAWYER PROBATE Temperature 36.6 C (97.8 F) 03/12/2014 12:40 PM LAWYER PROBATE Respiratory Rate 18 03/12/2014 12:40 PM LAWYER PROBATE Oxygen Saturation 98% 03/11/2014 10:04 PM LAWYER PROBATE Inhaled Oxygen Concentration - - Weight 91 kg (200 lb 9.9 oz) 09/29/2015 1:47 PM CDT Height 168.8 cm (5' 6.46) 09/29/2015 1:47 PM CD T Body Mass Index 31.93 09/29/2015 1:47 PM CDT Plan of Treatment Health Maintenance Due Date Last Done Comments HIV SCREENING 09/18/2011 HEPATITIS C SCREENING 09/13/2014 DIABETES-FOOT EXAM WITH MONOFILAMENT 2014 DTAP/TDAP/TD VACCINES (1 - Tdap) 09/18/2015 HEPATITIS B VACCINE (1 of 3 - 19+ 3-dose series) 09/18/2015 DIABETES-HGB A1C 03/31/2016 09/29/2015, , 04/01/2015, Additional history exists DIABETES-SERUM CREATININE 09/15/20162015, 09/10/2014, 09/10/2014, Additional history exists HPV VACCINE (1 - 3-dose SCDM series) 09/18/2023 DEPRESSION SCREENING 03/05/2024 DIABETES - URINE PROTEIN SCREENING 03/05/2024 09/16/2015, 04/01/2015, 01/05/2015, Additional history exists COVID-19 VACCINE ( - season) 2024 INFLUENZA VACCINE (#1) 2024 6, 11/26/2013, 02/13/2013 ZOSTER VACCINE (1 of 2) 2046 HIB VACCINE Aged Out No longer eligi ble based on patient's age to complete this topic MENINGOCOCCAL (Group B) VACCINE SHARED DECISION-MAKING Aged Out No longer eligible based on patient's age to complete this topic MENINGOCOCCAL GROUPS A/C/Y/W VACCINE Aged Out No longer eligible based on patient's age to complete this topic PNEUMOCOCCAL VACCINE Aged Out No long er eligible based on patient's age to complete this topic Procedures Procedure Name Priority Date/Time Associated Diagnosis Comments HEMOGLOBIN A1C - POCT (IP) BEAKER Routine 09/29/2015 12:55 PM CDT Diabetes mellitus type 1, uncontrolled MICROALB/CREAT RATIO URINE RANDOM PANEL Routine 09/16/2015 4:10 PM CDT Uncontrolled type 1 diabetes mellitus with stage 1 chronic kidney disease, with long-term current use of insulin RENAL FUNCTION PANEL Routine 09/16/2015 4:10 PM CDT Uncontrolled type 1 diabetes mellitus with stage 1 chronic kidney disease, with long-term current use of insulin from Last 3 Months or Most Recently Relevant to Health Maintenance Results * (ABNORMAL) HEMOGLOBIN A1C - POCT (IP) BEAKER (09/29/2015 12:55 PM CDT) Hemoglobin A1c POCT 9.5(A) 3.4 - 6.1 % [facility] POCT TESTING QC Verified Yes Yes [facility] PO CT TESTING Blood specimen (specimen) BLOOD SPECIMEN / Unknown 09/29/2015 12:55 PM CDT Michelle Madrid APRN-AUTOMOTIVE GLASS INSTALLER LAB - POINT OF CARE ORDE RABLES Final Result Performing Organization Address [facility] Co de Phone Number [facility] POCT TESTING [address] [phone] * (ABNORMAL) MICROALB/CREAT RATIO URINE RANDOM PANEL (09/16/2015 4:10 PM CDT) Creatinine Urine 65 20 - 370 mg/dL [facility] Comment: Test Performed at: [place] [address] IGLESIA ALEXIS DO,MPH Microalbumin Urine 4.2 mg/dL [facility] Comment: Reference Range Not established Test Performed at: [facility] [place] [address] IGLESIA ALEXIS DO,MPH Microalbumin/Creat inine Ratio 65(H) <30 mcg/mg creat [facility] Comment: The ADA defines abnormalities in albumin excretion as follows: Category Result (mcg/mg creatinine) Normal <30 Microalbuminuria 30-299 Clinical albuminuria > OR = 300 The ADA recommends that at least two of three specimens collected within a 3-6 month period be abnormal before considering a patient to be within a diagnostic category. Urine specimen (specimen) URINE SPECIMEN OBTAINED BY CLEAN CATCH PROCEDURE / Unknown 09/16/2015 4:10 PM CDT 09/16/2015 4:11 PM CDT Michelle Madrid APRN-AUTOMOTIVE GLASS INSTALLER LAB - URINE CHEMISTRY OR DERABLES Final Result Performing Organization Address City/[facility]/ZIP Co de Phone Number [facility] [id number] [place] [address] * (ABNORMAL) RENAL FUNCTION PANEL (09/16/2015 4:10 PM CDT) Glucose 343(H) 65 - 99 mg/dL [facility] Comment: Fasting reference interval BUN 7 7 - 20 mg/dL [facility] Creatinine 0.62 0.60 - 1.26 mg/dL [facility] eGFR by MDRD 145 > OR = 60 mL/min/1. 73m2 [facility] eGFR by MDRD 168 > OR = 60 mL/min/1. 73m2 [facility] BUN/Creatinine Ratio NOT APPLICABLE 6 - 22 (calc) [facility] Sodium 135 135 - 146 mmol/L [facility] Potassium 4.3 3.8 - 5.1 mmol/L [facility] Chloride 97(L) 98 - 110 mmol/L [facility] CO2 24 19 - 30 mmol/L [facility] Calcium 9.3 8.9 - 10.4 mg/dL [facility] Phosphorus 4.0 2.5 - 4.5 mg/dL [facility] Albumin 4.3 3.6 - 5.1 g/dL [facility] Comment: Test Performed at: [facility] [address] [place] [address] IGLESIA ALEXIS DO,MPH Blood specimen (specimen) BLOOD SPECIMEN / Unknown 09/16/2015 4:10 PM CDT 09/16/2015 4:11 PM CDT Michelle Madrid YARN CONDITIONER-AUTOMOTIVE GLASS INSTALLER LAB - CHEMISTRY ORDERABL ES Final Result [facility] [address] [place] [address] from Last 3 Months or Most Recently Relevant to Health Maintenance Insurance [place] Subscriber Plan / Payer (Ef fective for All Dates) Name:Zain Mcdonald III Relation to Subscriber:Self Name:Zain Mcdonald III Payer ID:Not on file Group ID:Not on file Type:Medicaid [place] Address: [place] [id number] [place] Sub[place] Plan / Payer (Ef fective for All Dates) Name:Zain Mcdonald III Relation to Subscriber:Self Name:Zain Mcdonald III Payer ID:Not on file Group ID:Not on file Type:Medicaid [place] Address: [place] [id number] [place] Subscriber Plan / Payer (Ef fective for All Dates) Name:Zain Mcdonald III Relation to Subscriber:Self Name:Zain Mcdonald III Payer ID:Not on file Group ID:Not on file Type:Medicaid [place] Address: [place] [id number] MED[place]ID [place]IT - [place] Member Subscriber Plan / Payer (Ef fective for All Dates) Name:Zain Mcdonald III Relation to Subscriber:Self Name:Zain Mcdonald III Payer ID:Not on file Group ID:Not on file Type:Medicaid [place] Address: [place] [id number] [place] MED[place]ID LIMITED BENEFIT [facility] Care Teams Art Department Head Relationship Specialty Start Date End Date Judd Patrick MD [address] [place] [address] PCP - General Family Medicine 08/31/13
--- OUTSIDE RECORDS SUMMARY | 2024-11-28 16:22 | XMS_ITS | Clinical Summary ---
Author Organization [facility] Address [address] [place] [address] Care Team Providers Care Senior Medical Billing Specialist Name Role Phone Unavailable Primary Care Provider Unavailabl e Social History Tobacco Use Types Packs/Day Years Used Date Smoking Tobacco: Never Assessed Sex and Gender Information Value Date Recorded Sex Assigned at Not on file Legal Sex Male 11:14 PM COD CLERK Gender Identity Not on file Sexual Orientation Not on file Plan of Treatment Health Maintenance Due Date Last Done Comments Annual Physical 09/18/1999 Hepatitis C 2014 DTaP, Tdap and Td Vaccines ( 1 - Tdap) 09/18/2015 Hepatitis B Vaccines (1 of 3 - 19+ 3-dose series) 09/18/2015 HPV Vaccines (1 - 3-dose SCD M series) 09/18/2023 COVID-19 Vaccine ( - 2023-2 5 season) 2024 Meningococcal B Vaccine Aged Out No l onger eligible based on patient's age to complete this topic Meningococcal Vaccine Aged Out No chai mike eligible based on patient's age to complete this topic Pneumococcal Vaccine: Pediat rics (0 to 5 Years) and At-Risk Patients (6 to 49 Years) Aged Out No longer eligible b ased on patient's age to complete this topic RSV Immunizations Under 20 Months Aged Out No longer eligible based on patient's age to complete this topic
--- OUTSIDE RECORDS SUMMARY | 2024-11-28 16:22 | XMS_ITS | Encounter Summary ---
Author Organization [facility] Address 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 Answer Date of Assessment Author No 07/15/2013 7:29 AM CDT Rupa Dewitt APRN-CNP * Is person blind or have serious difficulty seeing? Answer Date of Assessment Author No 07/15/2013 7:29 AM CDT Rupa Dewitt APRN-CNP * Does person have serious difficulty walking/climbing stairs? Answer Date of Assessment Author No 07/15/2013 7:29 AM CDT Rupa Dewitt APRN-CNP * Does person have difficulty dressing/bathing? Answer Date of Assessment Author No 07/15/2013 7:29 AM Rupa Edward APRN-CNP * Does person have difficulty doing errands alone? Answer Date of Assessment Author No 07/15/2013 7:29 AM Rupa Edward APRN-CNP documented as of this encounter Mental Status * Does person have difficulty concentrating/remembering/making decisions? Answer Entry Date Author No 07/15/2013 7:29 AM Rupa Edward APRN-CNP documented in this encounter Plan of Treatment Not on file documented as of this encounter Visit Diagnoses Not on filedocumented in this encounter Care Teams Front Services Agent Relationship Specialty Start Date End Date Judd Patrick MD [address] [place] [phone] PCP - General Family Medicine 08/31/13 documented as of this encounter
--- OUTSIDE RECORDS SUMMARY | 2024-11-28 16:22 | XMS_ITS | Encounter Summary ---
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 Social History Tobacco Use Types Packs/Day Years Used Date Smoking Tobacco: Never Smokeless Tobacco: Never Alcohol Use Standard Drinks/Week Comments No 0 (1 standard drink = 0.6 oz pur e alcohol) Sex and Gender Information Value Date Recorded Sex Assigned at Not on file 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 Gender Identity Not on file Sexual Orientation [...] of Assessment Author No 07/15/2013 7:29 AM uRpa Edward APRN-CNP * Does person have difficulty [...] documented as of this encounter Visit Diagnoses Diagnosis Elevated LDL cholesterol level Pure hypercholesterolemia Type I (juvenile type) diabetes mellitus without mention of complication, not stated as uncontrolled (HCC) Type I (juvenile type) diabetes mellitus without mention of complication, not stated as uncontrolled documented in this encounter Care Teams Bucket Turner Relationship Specialty Start Date End Date Judd Patrick MD [address] [place] [phone] PCP - General Family Medicine 08/31/13 documented as of this encounter
--- OUTSIDE RECORDS SUMMARY | 2024-11-28 16:22 | XMS_ITS | Clinical Summary ---
Author Organization [facility] Address [address] [place] [address] Care Team Providers Care Skin Diving Teacher Name Role Phone Judd Patrick MD Primary Care Provide r Alicia Montoya CANDY FORMING MACHINE OPERATOR Unavailable [phone] Allergies No known active allergies Medications BD INSULIN SYRINGE ULTRA-FINE 1 mL 31 gauge x 15/64 syringe USE TO ADMINISTER LANTUS ONCE DAILY OR DIRECTED. 100 Syringe 3 7 Active ACETONE, URINE, TEST strip USE NEEDED (USE WHEN BLOOD SUGAR IS GREATER THAN 250 OR WHEN ILL. ) 100 strip 2 8 Active alcohol swabs pads, medicated USE ONE PAD FOR ONE USE UP TO FOUR TIMES DAILY 400 each 1 1 Active omeprazole (PriLOSEC) 40 mg capsule 1 Active insulin glargine (insulin glargine) 100 unit/mL (3 mL) pen for injection Take 40 units BID 15 mL 1 2 Active glucagon (BAQSIMI) 3 mg/actuation spray,non-aerosol Administer 1 spray into one nostril as needed (hypoglycemia) 1 each 2 Active phentermine (ADIPEX-P) 37.5 mg tablet TAKE 1 TABLET(37.5 MG) BY MOUTH DAILY BEFORE BREAKFAST 90 tablet 1 4 Active blood glucose diagnostic stripIndications:T ype 1 diabetes mellitus with hyperglycemia (HCC) Check blood sugar 4 times daily 400 strip 3 4 Active blood-glucose sensor (Dexcom G7 Sensor) deviceIndications: Type 1 diabetes mellitus with hyperglycemia (HCC) Continuous glucose monitor. Change every 10 days. 10 each 3 5 Active ondansetron ODT (ZOFRAN-ODT) 4 mg disintegrating tabletIndications: Type 1 diabetes mellitus with hyperglycemia (HCC) Take 1 tablet (4 mg total) by mouth every 8 (eight) hours as needed for nausea or vomiting 20 tablet 2 5 Active Ozempic 0.25 mg or 0.5 mg(2 mg/1.5 mL) pen injector injection Inject 0.5 mg under the skin every 7 days 9 mL 5 Active benzonatate (TESSALON) 200 mg capsuleIndications :Acute non-recurrent frontal sinusitis Take 1 capsule (200 mg total) by mouth 3 (three) times a day as needed for cough 30 capsule 5 Active ezetimibe (ZETIA) 10 mg tablet TAKE ONE TABLET BY MOUTH DAILY 30 tablet 11 5 Active insulin lispro (HumaLOG) 100 unit/mL vial for injection DIRECTED WITH INSULIN PUMP TO AVERAGE 180 UNITS PER DAY 170 mL 3 5 Active losartan (COZAAR) 100 mg tabletIndications: Hypertension associated with diabetes (HCC) Take 1 tablet (100 mg total) by mouth daily 90 tablet 3 5 Active chlorthalidone (HYGROTON) 25 mg tabletIndications: Hypertension associated with diabetes (HCC) TAKE ONE TABLET BY MOUTH DAILY 90 tablet 5 Active atorvastatin (LIPITOR) 80 mg tabletIndications: 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 Wegovy 0.25mg weekly sent in to see if insurance will cover for weight loss. Discussed healthy diet and importance of regular physical activity (20- 30min/day, 150min/wk). 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 Will check CMP & TFTs today before leaving. Verified that he uses [employer]. Aware to check results/results letter in [employer]. Will contact by phone if needed. He is to call his PCP re: palpitations; inform him that we marisa thyroid labs today. To ask for holter monitor or appt for eval. Reviewed red flags; what would warrant ED for more emergent eval. 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 Near goal on current Atorvastatin 80mg & Zetia 10mg. Last lipid panel: 07/24/23 LDL=85, EF=066. Assessment & Plan (11/01/2023 2:39 PM CDT): Chronic problem. Near goal on current Atorvastatin 80mg & Zetia 10mg. Last lipid panel: 07/24/23 LDL=85, OA=343. Assessment & Plan (07/24/2023 4:25 PM CDT): Chronic, stable. Continue statin therapy with atorvastatin and Zetia. Update lipid profile Assessment & Plan (04/24/2023 4:14 PM PHOTOGRAPHIC PRESS SCREWMAKER): Chronic problem. Not controlled on current Atorvastatin 80mg. Last lipid panel: 05/11/22 ZPN=896, OH=079. Reviewed diet. Assessment & Plan (01/04/2023 4:49 PM CDT): Chronic, uncontrolled Continue Atorvastatin Add zetia Assessment & Plan (09/14/2022 3:20 PM CDT): Chronic problem. Not controlled on current Atorvastatin 80mg. Last lipid panel: 05/11/22 BCQ=107, DT=031. Reviewed diet. Assessment & Plan (05/11/2022 2:44 PM PHOTOGRAPHIC PRESS SCREWMAKER): Chronic problem, last checked 02/2021. Near goal at that time on current Atorvastatin 80mg. Last lipid panel: 02/03/21 OJE=328, KA=064. Will update lipid panel today. Verified that he uses [employer]. Aware to check results/results letter in [employer]. Will contact by phone if needed. Assessment & Plan (02/03/2021 4:31 PM PHOTOGRAPHIC PRESS SCREWMAKER): Chronic problem. On statin therapy, no changes. Assessment & Plan (03/25/2020 4:50 PM PHOTOGRAPHIC PRESS SCREWMAKER): Check fasting lipid profile Low-calorie diet Low-fat diet Exercise Consider starting statin therapy Assessment & Plan (01/01/2020 3:35 PM CDT): Goal of treatment , LDL cholesterol less than 100 ( less than 70 in patients with history of heart attacks and / or strokes ) NonHDL cholesterol ( total cholesterol minus HDL cholesterol ) goal less than 130 ( less than 100 in patients with history of heart attacks and / or strokes ) Low cholesterol, low fat diet was discussed and advised. Daily exercise On statin therapy with Lipitor,poor compliance Increase Lipitor to 80 mg daily Non-intractable vomiting with nausea 08/22/2019 Overview (08/22/2019): Added automatically from request for surgery [id number] Assessment & Plan (05/26/2021 4:39 PM CDT): Prescription for Zofran was given Referral to GI with Dr. Kwon Gastroesophageal reflux disease without esophagi tis 08/22/2019 Overview (08/22/2019): Added automatically from request for surgery [id number] Insulin pump status 07/24/2018 Assessment & Plan (03/19/2024 4:18 PM PHOTOGRAPHIC PRESS SCREWMAKER): No pump setting changes at this time. Assessment & Plan (11/01/2023 3:47 PM CDT): Pump setting changes: -increased 2.75 to 2.85 units/hr Current medications: Novolog via MM 780 G pump BR: 12a 2.85, 6a 3.5, 4p 4.25 CR 4 CF 15 Target 100 AIT 2hrs Assessment & Plan (04/24/2023 4:14 PM PHOTOGRAPHIC PRESS SCREWMAKER): Reviewed MM download with [employer]. Stressed need to start bolusing with meals & correctional boluses. Assessment & Plan (09/14/2022 3:13 PM CDT): No pump setting changes at this time. Assessment & Plan (05/11/2022 2:44 PM PHOTOGRAPHIC PRESS SCREWMAKER): No pump setting changes today. Needs to give correctional/food bolus Assessment & Plan (07/15/2019 2:31 PM CDT): Needs additional training on use of pump; when to bolus, how to extend the bolus. Assessment & Plan (02/20/2019 4:37 PM PHOTOGRAPHIC PRESS SCREWMAKER): Change AI to 2 hours. Add new IC 3.5 at 6 pm Change target to 100 Assessment & Plan (08/15/2018 2:52 PM CDT): Change AI to 3. Upload weekly. Will likely need to lower to 2.5 or 2.0 Assessment & Plan (07/24/2018 2:50 PM CDT): Increase basal MN to 1.9, noon to 2.1. Change SF to 30, T to 100-110 Change low sensor to 80. Hypertension associated with diabetes 06/06/2018 Assessment & Plan (03/19/2024 3:23 PM PHOTOGRAPHIC PRESS SCREWMAKER): Chronic problem, controlled on current losartan 100mg daily Assessment & Plan (01/10/2024 4:39 PM PHOTOGRAPHIC PRESS SCREWMAKER): Chronic, stable. Continue losartan Update GFR Assessment & Plan (11/01/2023 2:40 PM CDT): Chronic problem, controlled on current losartan 100mg daily, chlorthalidone 25mg daily Assessment & Plan (04/24/2023 4:13 PM PHOTOGRAPHIC PRESS SCREWMAKER): Chronic problem, controlled on current losartan 100mg daily. Assessment & Plan (09/14/2022 3:22 PM CDT): Chronic problem, controlled on current losartan 100mg daily. Assessment & Plan (05/11/2022 2:45 PM PHOTOGRAPHIC PRESS SCREWMAKER): Chronic problem, controlled on current losartan 100mg daily. Will update labs today. Verified that he uses [employer]. Aware to check results/results letter in [employer]. Will contact by phone if needed. Assessment & Plan (05/26/2021 4:38 PM CDT): With some postural hypotension, chlorthalidone lowered to 15 mg daily Assessment & Plan (02/03/2021 4:30 PM PHOTOGRAPHIC PRESS SCREWMAKER): Controlled on current medications, no changes. Assessment & Plan (11/04/2020 5:02 PM CDT): Uncontrolled Low salt diet Exercise Add chlorthalidone Will check a BMP, and aldosterone to renin ratio Assessment & Plan (03/25/2020 4:49 PM PHOTOGRAPHIC PRESS SCREWMAKER): Goal blood pressure is less than 140/85 Low salt diet was discussed andd recommended The importance of daily aerobic exercise was also emphasized. Continue current meds, including FLOWER-I or ARB, e.g. losartan Check microalbumin Check CMP Assessment & Plan (01/01/2020 3:22 PM CDT): Goal blood pressure is less than 140/85 Low salt diet was discussed andd recommended The importance of daily aerobic exercise was also emphasized. Continue current meds, including FLOWER-I or ARB, e.g. Losartan Assessment & Plan (08/28/2019 4:15 PM CDT): Goal blood pressure is less than 140/85 Low salt diet recommended Daily aerobic exercise Continue current meds, including FLOWER-I or ARB Check microalbumin Assessment & Plan (07/15/2019 2:37 PM CDT): Continue current medication. Check random home BP readings. Assessment & Plan (02/20/2019 4:37 PM PHOTOGRAPHIC PRESS SCREWMAKER): Controlled on current medications. Continue plan. Assessment & Plan (11/21/2018 12:21 PM CDT): With microalbuminuria Continue Losartan Assessment & Plan (08/15/2018 2:40 PM CDT): Controlled on current medications. Assessment & Plan (06/06/2018 4:08 PM CDT): Goal blood pressure is less than 140/85 Low salt diet recommended Daily aerobic exercise Start Cozaar. Type 1 diabetes mellitus with hyperglycemia 05/04 Overview (07/28/2016): Type 1 diabetes mellitus with hyperglycemia Assessment & Plan (03/19/2024 4:20 PM PHOTOGRAPHIC PRESS SCREWMAKER): Chronic problem. A1c decreased minimally from 8.7% 01/10/24 to now 8.6%. reviewed lifestyle. Needs to increase activity. Watch snacks. Reviewed medtronic download with Zain. States that he's to receive a new [employer] pump tomorrow. E-mail sent to Sonya & Diego at [employer] re: new pump & training. Contact info for Zain given to them for training. Current medications: Phentermine 37.5mg Ozempic 0.25mg weekly (samples given) Novolog via MM 780 G pump BR: 12a 3.25, 4a 3.25, 6a 3.5, 4p 4.75 CR 3.5 CF 15 Target 100 AIT 2hrs UTD on DM eye exam (02/2024 at [facility]). Has appt 04/16/24 [facility] in [place]. Letter sent to get copy of report. UTD on labs. Discussed with Zain Mcdonald: Strive for regular exercise (30min most days) and diet (get at least 4-5 servings of fruit and veggies daily, avoid processed foods, increase lean protein intake and decrease carb portions as well as fruit juices, regular soda & desserts). Watch carbs and simple sugars. Check the blood sugar: Guardian 4. Check the feet daily for skin breakdown and infection. Assessment & Plan (01/10/2024 4:39 PM PHOTOGRAPHIC PRESS SCREWMAKER): Chronic, stable but uncontrolled Importance of diet and exercise discussed again Provided the patient with samples of Ozempic, to restart 0.5 mg weekly. Will start new insurance next month, so he might be covered Continue insulin pump at current settings. Importance of bolusing with each meal emphasized. Assessment & Plan (11/01/2023 4:30 PM CDT): Chronic problem. A1c decreased minimally from 8.9% 07/24/23 to now 8.8%. reviewed lifestyle. Needs to increase activity. Watch snacks after work. Reviewed medtronic download with Zain. Will trial Ozempic again: 0.25mg weekly. Discussed not eating over the Ozempic appetite suppression. Running persistently high between 1-5am (now not going to bed until approx 5am). Pump setting changes: -increased 2.75 to 2.85 units/hr Current medications: Phentermine 37.5mg Ozempic 0.25mg weekly Novolog via MM 780 G pump BR: 12a 2.85, 6a 3.5, 4p 4.25 CR 4 CF 15 Target 100 AIT 2hrs UTD on DM eye exam (03/2023 at [facility]). UTD on labs. Discussed with Zain Mcdonald: Strive for regular exercise (30min most days) and diet (get at least 4-5 servings of fruit and veggies daily, avoid processed foods, increase lean protein intake and decrease carb portions as well as fruit juices, regular soda & desserts). Watch carbs and simple sugars. Check the blood sugar: Guardian 4. Check the feet daily for skin breakdown and infection. Assessment & Plan (07/24/2023 4:25 PM CDT): Chronic, uncontrolled Importance of diet, watching carbs was discussed Encouraged to increase physical Continue pump at current settings Assessment & Plan (04/24/2023 4:13 PM PHOTOGRAPHIC PRESS SCREWMAKER): Chronic problem. Uncontrolled and A1c worsened from 8.2% to now 8.8%. reviewed Medtronic download with Zain. Very minimal bolusing. Can go several days wo bolus. Stressed need to start bolusing w/food & correctional if he notes hyperglycemia. Compared todays download to last appointment. No pump setting changes today. Current medications: Novolog via MM 780 G pump BR: 12a 2.75, 6a 3.5, 4p 4.25 CR 2 CF 15 Target 100 AIT 2hrs DM eye exam 03/2023 at [facility] and [facility] 02/2023. Letter sent to get copy of reports. UTD on labs. Discussed with Zain Mcdonald: Strive for regular exercise (30min most days) and diet (get at least 4-5 servings of fruit and veggies daily, avoid processed foods, increase lean protein intake and decrease carb portions as well as fruit juices, regular soda & desserts). Watch carbs and simple sugars. Check the blood sugar: dexcom. Check the feet daily for skin breakdown and infection. Assessment & Plan (01/04/2023 4:51 PM CDT): Hba1c was Lab Results Component Value Date HGBA1C 8.2 01/04/2023 today, indicating inadequate DM control Goal Hba1c and blood glucose explained Diet and exercise were advised Prevention and treatment of hyypoglcyemia were discussed with the patient Blood glucose monitoring : Guardian CGM Adjustment to medications: I emphasized to the patient the need to bolus with meals, entering the actual amount of carbs Insulin to carb ratio increased from 2 to 4 The patient also will meet with the [employer] rep to go over his pump download data , for advise on changes to some of his habits in terms of bolusing, to improve performance. I also provided Zain with Ozempic samples to try 0.25 mg dose which he has been able to tolerate in the past, which hopefully will help us for weight control and decreasing the amount of insulin that he is needing Assessment & Plan (09/14/2022 3:19 PM CDT): Chronic problem. Uncontrolled but A1c improved from 9% to 8.3%. Feels better control w/MM 780G. Has had improved time in range (he's watching). Has had days of 100% time in range. Reviewed Medtronic download with him during appointment. Compared todays download to last time. No pump setting changes today. Current medications: Novolog via MM 780 G pump BR: 12a 2.75, 6a 3.5, 4p 4.25 CR 2 CF 15 Target 100 AIT 2hrs Having vision issues x4 days--to stop at [facility] today (call if not there) to get appt for emergent eval (vision loss L eye). UTD on labs. Assessment & Plan (05/11/2022 2:43 PM PHOTOGRAPHIC PRESS SCREWMAKER): Chronic problem, not at goal. Has worsened from 8.3% to 9.0%. Sedentary lifestyle & poor food choices. Will increase Mounjaro from 2.5mg to 5.0mg weekly to see if any appetite suppression as well as improved A1c. Does not always correctional bolus nor food bolus (maybe 50%). Stressed need to enter carbs/BS. Current medications: Mounjaro 5.0mg weekly Novolog via MM 770 G pump BR: 12a 3.0, 6a 4, 4p 4.5, 10p 4.15 CR 2.3 CF 20 Target 8-110 Will update labs today. Verified that he uses [facility]. Aware to check results/results letter in [employer]. Will contact by phone if needed. Assessment & Plan (01/17/2022 3:58 PM PHOTOGRAPHIC PRESS SCREWMAKER): Hba1c was Lab Results Component Value Date HGBA1C 8.3 01/17/2022 today, indicating inadequate DM control Goal Hba1c and blood glucose explained Diet and exercise were advised Prevention and treatment of hyypoglcyemia were discussed with the patient Blood glucose monitoring : continue CGM with Guardian Adjustment to medications: Pump settings adjusted, lowering insulin to carb ratio to 2.5 and increasing sensitivity factor to 20 Evening basal rate increased to 4 units/hour Will try Mounjaro Assessment & Plan (08/23/2021 4:14 PM CDT): Hba1c was Lab Results Component Value Date HGBA1C 8.5 08/23/2021 today, indicating inadequate DM control Goal Hba1c and blood glucose explained Diet and exercise were advised Prevention and treatment of hyypoglcyemia were discussed with the patient Blood glucose monitoring : continue with Guardian sensor Adjustment to medications: Insulin pump settings adjusted: These are your new insulin pump settings : Basal rates: 12am 3.0 6am 3.9 4pm 4.0 IC 1.0 SF 18 TG 80-110 I also emphasized to the patient the need to bolus before each meal, counting his carbs Assessment & Plan (05/26/2021 4:37 PM CDT): Hba1c was Lab Results Component Value Date HGBA1C 8.3 05/26/2021 today, indicating inadequate DM control Goal Hba1c and blood glucose explained Diet and exercise were advised Prevention and treatment of hyypoglcyemia were discussed with the patient Blood glucose monitoring : guardian cgm Adjustment to medications: pump settings adjusted as follows: Basal rates: 12am 2.8 6am 3.7 4pm 3.85 IC 1.0 SF 18 TG 80-110 Importance of bolusing with each meal was discussed also. Assessment & Plan (02/03/2021 4:34 PM PHOTOGRAPHIC PRESS SCREWMAKER): Chronic problem, not at goal. Is noticing increasing insulin resistance, although his weight has improved some. He is unable to tolerate Ozempic 1 mg so only intermittently takes it, recommend reducing to 0.5 mg weekly then. Will also try metformin to see if helps with insulin resistance component, start at 500 mg BID and increase slowly as tolerated. We discussed how to adjust insulin as needed (when not in auto mode) if this works well for him. He is comfortable doing this. If doesn't help after a month then he can stop it. Also discussed aiming for at least 30 minutes exercise daily to improve insulin resistance, beyond his normal activity at work. Update routine labs today including CMP, TSH, MA/Cr, lipid panel. Assessment & Plan (11/04/2020 5:03 PM CDT): Hba1c was Lab Results Component Value Date HGBA1C 8.1 (A) 11/04/2020 today, indicating inadequate DM control Goal blood sugars in the 120-150 range , with Hb1c under 7.0 % was explained 1800 calorie, consistent carb diet recommended. No more than 30-45 grams of carbs per meal recommended, as well as avoiding high concentrated sweet drinks . 25-45 min daily exercise, combining both aerobic and resistance exercise recommended. The need to monitor blood glucose before meals and bedtime was discussed. Prevention and treatment of hyypoglcyemia discussed. Restart Ozempic 1 mg week Pump settings adjusted: Pump manual settings: Basals 12sm 2.5 8am 2.95 IC 12a 1.5 SF 18 T 100-120 AIT 2h Assessment & Plan (07/22/2020 4:03 PM CDT): Hba1c was Lab Results Component Value Date HGBA1C 8.1 07/22/2020 today, indicating sub-optimal DM control Goal blood sugars in the 120-150 range , with Hb1c under 7.0 % was explained 1800 calorie, consistent carb diet recommended. No more than 30-45 grams of carbs per meal recommended, as well as avoiding high concentrated sweet drinks . 25-45 min daily exercise, combining both aerobic and resistance exercise recommended. The need to monitor blood glucose before meals and bedtime was discussed. Prevention and treatment of hyypoglcyemia discussed. Continue pump at current settings Will try again Ozempic to see if it helps with some weight loss Assessment & Plan (03/25/2020 4:53 PM PHOTOGRAPHIC PRESS SCREWMAKER): Hba1c was Lab Results Component Value Date HGBA1C 7.9 03/25/2020 today, indicating ... DM control Goal blood sugars in the 120-150 range , with Hb1c under 7.0 % was explained 1800 calorie, consistent carb diet recommended. No more than 30-45 grams of carbs per meal recommended, as well as avoiding high concentrated sweet drinks . 25-45 min daily exercise, combining both aerobic and resistance exercise recommended. The need to monitor blood glucose before meals and bedtime was discussed. Prevention and treatment of hyypoglcyemia discussed. Pump settings adjusted, lowering insulin to carb ratio to 2 Assessment & Plan (01/01/2020 3:38 PM CDT): Hba1c was Lab Results Component Value Date HGBA1C 7.7 01/01/2020 today, indicating suboptimal DM control Goal blood sugars in the 120-150 range , with Hb1c under 7.0 % was explained 1800 calorie, consistent carb diet recommended. No more than 30-45 grams of carbs per meal recommended, as well as avoiding high concentrated sweet drinks . 25-45 min daily exercise, combining both aerobic and resistance exercise recommended. The need to monitor blood glucose before meals and bedtime was discussed. Prevention and treatment of hyypoglcyemia discussed. Settings adjusted: IC lower to 2.0 Stay on Ozempic , 0.5 mg weekly Assessment & Plan (07/15/2019 2:40 PM CDT): Reports nonspecific symptoms of fatigue, GI bloating, fullness with variable BG readings. Recommend that he see GI to evaluate for gastroparesis. Will have him contact [employer] to review use of extended bolus. Needs to follow up in office . Check labs including TFT's. Assessment & Plan (02/20/2019 4:39 PM PHOTOGRAPHIC PRESS SCREWMAKER): A1c 8.0. Advised that he needs to stay in automode more. Target for 80% or higher. Lows occur when he is not in automode.Settings will be adjusted to diminish exit d/t hyperglycemia. Sick day rules reviewed and provided in writing. Insulin pump trouble shooting reviewed and provided in writing. Assessment & Plan (11/21/2018 12:22 PM CDT): Hba1c was Lab Results Component Value Date HGBA1C 7.9 % 11/21/2018 today, indicating Sub-optimal but better DM control 1800 calorie, consistent carb diet recommended. No more than 30-45 grams of carbs per meal recommended, as well as avoiding high concentrated sweet drinks . 25-45 min daily exercise, combining both aerobic and resistance exercise recommended. The need to monitor blood glucose before meals and bedtime was discussed. Prevention and treatment of hyypoglcyemia discussed. Insulin dose: Continue pump at current settings Need to calibrate and change sensors on time Assessment & Plan (08/15/2018 2:50 PM CDT): Would like to see higher % of wear. Often at max bolus so will lower AI. No other boluses. Advised to be more cautious with adding carbs too close together when correcting highs, however AI adjustment should help with this. Assessment & Plan (07/24/2018 2:52 PM CDT): BG pattern elevated throughout the day however the fact that he sometimes boluses pc and corrections result in brisk drops is contributing to pattern. Will make adjustments to settings. We will evaluate again in one week and likely start automode at that time. He met with animal trainer today as well. Assessment & Plan (06/06/2018 2:12 PM CDT): Your Hba1c today was: Lab Results Component Value Date Your goal hba1c is under 7.0 to prevent fci diabetes complications ( eye , kidney and nerve damage ) . Your goal sugars are in the 90-130 range Exercise recommendations: It is recommended that you do daily aerobic ( walking, riding a bike, swimming ) and resistance exercises ( light weight lifting, resistance band stretching ) for at least 30 minutes , most days of the week. If you can not walk, chair exercises for 10-15 min a day would help tremendously. As little as 15-20 minutes exercise , in one or two sessions a day, is still very helpful to improve your diabetes control . Diet recommendations: Eat small portion meals, trying not to consume more than 1800 calories a day . Try to eat not more than than 2 servings of carbs ( starches ) wiith your meals. Avoid soft drinks, including regular sodas , fruit juices and sweetened tea. Drink water instead. Eat plenty of green and leafy vegetables, including salads. Medications: Take your medications regularly. Setting phone alarms can help . Keep your medication on the kitchen dinner table, by the bedside table or by the sink where they are visible to you. I Monitor your sugar levels with finger sticks regularly before meals and bedtime and keep a log sheet or book. Bring your sugar meter and /or a log book or log sheet to every office visit. Basal rates adjusted; 12 a 1.8, 12p 2.0 Take your boluses with meals, counting carbs and according with blood glucose readings. 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 Discussed healthy diet and importance of regular physical activity (20- 30min/day, 150min/wk). Class 3 severe obesity due t o excess calories with serious comorbidity and body mass index (BMI) of 45.0 to 49.9 in adult 05/11/2022 4 Assessment & Plan (07/24/2023 4:26 PM CDT): Chronic, worsening Continue phentermine Patient has not been able to tolerate GLP 1 . Diet and exercise Assessment & Plan (05/11/2022 2:37 PM PHOTOGRAPHIC PRESS SCREWMAKER): Discussed healthy diet and importance of regular physical activity (20- 30min/day, 150min/wk). 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 Has lost 12# since 01/2022 since starting [employer]. Skin rash 03/25/2020 05/11/2022 Assessment & Plan (03/25/2020 4:51 PM PHOTOGRAPHIC PRESS SCREWMAKER): Check 24 hour urine for free cortisol Check CBC and TSH Advised on seeing a facilities painter Morbid obesity ([facility]) 02/20/201911/2022 Assessment & Plan (08/23/2021 4:15 PM CDT): Would advise on bariatric surgery, but the patient is very reluctant Start phentermine Assessment & Plan (07/22/2020 4:04 PM CDT): Diet and exercise were discussed. 1200 Calorie diet advised 45-60 min aerobic / resistance exercise most days of the week recommended. Bariatric surgery medically indicated , but patient is reluctant and he said that insurance probably not cover Will try Ozempic which can help with some weight loss Assessment & Plan (08/28/2019 4:16 PM CDT): Diet and exercise were discussed. 1200 Calorie diet advised 45-60 min aerobic / resistance exercise most days of the week recommended. Bariatric surgery medically indicated , pt reluctant Will try Ozempic, which can help to lower insulin requirement and some weight loss. Assessment & Plan (07/15/2019 2:37 PM CDT): Importance of following diet and exercising discussed. Assessment & Plan (02/20/2019 4:36 PM PHOTOGRAPHIC PRESS SCREWMAKER): Needs to be exercising more Type 1 diabetes mellitus with hyperlipidemia 9 01/01/2020 Assessment & Plan (08/28/2019 4:14 PM CDT): Goal of treatment , LDL cholesterol less than 100 ( less than 70 in patients with history of heart attacks and / or strokes ) NonHDL cholesterol ( total cholesterol minus HDL cholesterol ) goal less than 130 ( less than 100 in patients with history of heart attacks and / or strokes ) Low cholesterol, low fat diet was discussed and advised. Daily exercise On statin therapy with Lipitor Assessment & Plan (07/15/2019 2:36 PM CDT): Continue statin Assessment & Plan (02/20/2019 4:37 PM PHOTOGRAPHIC PRESS SCREWMAKER): Needs to focusing more on low fat diet options and increased exercise. Continue statin Assessment & Plan (11/21/2018 12:20 PM CDT): Goal of treatment , LDL cholesterol less than 100 ( less than 70 in patients with history of heart attacks and / or strokes ) NonHDL cholesterol ( total cholesterol minus HDL cholesterol ) goal less than 130 ( less than 100 in patients with history of heart attacks and / or strokes ) Low cholesterol, low fat diet was discussed and advised. Daily exercise On statin therapy Check lipid profile Adjust dose of Lipitor as indicated. Hypoglycemia 11/21/2018 05/11/2022 Assessment & Plan (11/21/2018 12:22 PM CDT): Prevention and treatment of hypoglycemia were discussed Pa has glucagon emergency kit at home and family knows how to use it. Hypercholesterolemia 10/15/2012 023 Overview (11/21/2016): Overview: [place]st poorly controlled type I diabetes mellitus; euthyroid. Last Assessment & Plan: 1. Atorvastatin 10 mg daily. 2. Return appointment in two months. Assessment & Plan (08/15/2018 2:40 PM CDT): At goal on current medications. Encounters Date Type Department Care Team Description 11/24/2024 3:30 PM CDT Office Visit [facility] Medicine Minimally Invasive Surgery [address] [place] [address] Medical Office Building [address] [place] [address] Jesu Jacob NP Morbid obesity (HCC) (Primary Dx); BMI 50.0-59.9, adult (HCC); Obstructive sleep apnea; Gastroesophageal reflux disease, unspecified whether esophagitis present; Primary hypertension; Hyperlipidemia, unspecified hyperlipidemia type 09/09/2024 Orders Only [facility] Diabetes and Endocrinology [address] [place] [id number] Provider, MD Hien from Last 3 Months Surgical History Surgery Date Site/Laterality Comments NO PAST SURGERIES Medical History Medical History Date Comments Hypercholesterolemia High choles terol Hypertension Hypertension Hypoglycemia Anxiety 03/05/2012 Depression 03/05/2012 GERD (gastroesophageal reflux disease) 2013 Sleep apnea Diabetes mellitus type I 06/26/1999 Morbid obesity (HCC) Family History Medical History Relation Name Comments Anemia Mother Roxanne Burkett COPD Mother Roxanne Burkett Coronary artery disease Mother Roxanne Burkett Coronary artery disease; Depression Mother Roxanne Burkett Early Mother Roxanne Burkett Heart attack Mother Roxanne Burkett Heart disease Mother Roxanne Burkett Hypertension Mother Roxanne Burkett Hypertensio n; Mental illness Mother Roxanne Burkett Stroke Mother Roxanne Burkett Stroke; Relation Name Status Comments Mother Roxanne Burkett Social History Tobacco Use Types Packs/Day Years Used Date Smoking Tobacco: Every Day Cigarettes 1.3 9.7 Started: 03/05/2015 Smokeless Tobacco: Never Tobacco Cessation:Ready to Q uit: Not Asked; Counseling Given: Not Answered Alcohol Use Standard Drinks/Week Comments Not Currently 0 (1 standard drink = 0.6 oz pur e alcohol) PHQ-2 Answer Date Recorded PHQ-2 Total Score (If total score is 3 or more points, staff should administer the PHQ-9) 0 08/11/2024 AUDIT-C Answer Date Recorded Q1: How often do you have a drink containing alcohol? Never 11/24/2024 Q2: How many drinks containi ng alcohol do you have on a typical day when you are drinking? Patient does not drink Q3: How often do you have si x or more drinks on one occasion? Never 11/24/2024 Sex and Gender Information Value Date Recorded Sex Assigned at Not on file Legal Sex Male 9:11 PM PHOTOGRAPHIC PRESS SCREWMAKER Gender Identity Male 07/15/2019 12:10 PM CDT Sexual Orientation [place] 03/18/2024 1: 56 AM PHOTOGRAPHIC PRESS SCREWMAKER Obstetrics History Last Filed Vital Signs Vital Sign Reading Time Taken Comments Blood Pressure 147/96 11/24/2024 3:30 PM CDT Pulse 82 11/24/2024 3:30 PM CDT Temperature 36.8 C (98.3 F) 11/24/2024 3:30 PM CDT Respiratory Rate 18 08/11/2024 1:51 PM CDT Oxygen Saturation 95% 11/24/2024 3:30 PM CDT Inhaled Oxygen Concentration - - Weight 163.7 kg (361 lb) 11/24/2024 3:30 PM CDT Height 170.6 cm (5' 7.17) 11/24/2024 3:30 PM CD T Body Mass Index 56.26 11/24/2024 3:30 PM CDT Plan of Treatment Health Maintenance Due Date Last Done Comments Hepatitis C Screening 1996 Varicella Vaccines (1 of 2 - 13+ 2-dose series) 2009 HPV Vaccines (2 - Male 2-dos e series) 04/27/2011 10/25/2010 Regular Well Visit/Exam 18-64 2014 Pneumococcal vaccine <65 (1 of 2 - PCV) 09/18/2015 DTaP/Tdap/Td Vaccine (7 - Td or Tdap) 10/25/2020 10/25/2010, 10/05/2000, 10/14/1997, Additional history exists TSH Level 09/15/2023 09/14/2022, 12/04/2020, 03/26/2020 Foot Exam 10/31/2024 11/01/2023, 03/0 11/2022, 02/03/2021, Additional history exists Covid-19 Vaccine (3 - 2024-2 6 season) 2024 07/06/2020, 06/15/2020 Influenza Vaccine (#1) 2024 1, 03/24/2004, 02/25/2002 Hemoglobin A1C 02/10/2025 08/11/2024, 03/05, 01/10/2024, Additional history exists Albumin Creatinine Ratio, Urine 08/11/2025 08/11/2024, 07/24/2023, 05/11/2022, Additional history exists Depression Screening 08/11/2025 08/11/2024, 01/10/2024, 08/23/2021, Additional history exists Lipid Panel 08/11/2025 08/11/2024, 05/2 03/2023, 05/11/2022, Additional history exists eGFR 08/11/2025 08/11/2024, 11/0 09/2023, 09/14/2022, Additional history exists Dilated Eye Exam 09/08/2025 09/08/2024, 11/2023, 03/07/2023, Additional history exists Hepatitis B Screening Completed 04/15/1997 , 1996, 1996 Procedures Procedure Name Priority Date/Time Associated Diagnosis Comments DIABETES EYE EXAM Routine 09/08/2024 8:20 AM CDT EGFR Routine 08/11/2024 2:53 PM CDT Hypertension associated with diabetes (HCC) LIPID PANEL Routine 08/11/2024 2:53 PM CDT Hypertension associated with diabetes (HCC) ALBUMIN CREATININE RATIO, URINE Routine 08/11/2024 2:53 PM CDT Type 1 diabetes mellitus with hyperglycemia (HCC) POCT HEMOGLOBIN A1C Routine 08/11/2024 1 :53 PM CDT Type 1 diabetes mellitus with hyperglycemia (HCC) TSH Routine 09/14/2022 11:27 AM CDT Palpitations DIABETES FOOT EXAM Routine 03/21/2017 from Last 3 Months or Most Recently Relevant to Health Maintenance Results * (ABNORMAL) DIABETES EYE EXAM (09/08/2024 8:20 AM CDT) Historical Provider HEALTH MAINTENANCE Final Result * eGFR (08/11/2024 2:53 PM CDT) eGFR >90 >=60 mL/min/1. 73 m2 Comment: Interpretive Data Reference Interval Normal >/= 90 mL/min/1.73m2 Mildly decreased* 60 - 89 mL/min/1.73m2 Mildly to moderately decreased 45 - 59 mL/min/1.73m2 Moderately to severely decreased 30 - 44 mL/min/1.73m2 Severely decreased 15 - 29 mL/min/1.73m2 Kidney Failure < 15 mL/min/1.73m2 *Relative to young adult level Estimated glomerular filtration rate is determined by the 2020 CKD-EPI equation recommended by the National Kidney Foundation (A Unifying Approach to GFR Estimation: Recommendations of the NKF-ASK Task Force on Reassessing the Inclusion of Race in Diagnosing Kidney Disease, JASN 2020). The CKD-EPI equation should not be used for patients with unstable renal function and has not been validated in children and those over 70. Current interpretive data was last reviewed 2021. Blood 08/11/2024 2:53 PM CDT 08/11/2024 5:31 PM CDT Chi Waldrop MD LAB BLOOD ORDERABLES Final Resul t Performing Organization Address [facility] de Phone Number JOANIEMEDARDO [place] [address] [place] [address] * (ABNORMAL) Albumin Creatinine Ratio, Urine (08/11/2024 2:53 PM CDT) Albumin Ur 1,953.6 mg/L Comment: Interpretive Data No reference range established. Current interpretive data was last revised 2018. Creatinine Ur 97.3 mg/dL [facility] Comment: Interpretive Data No reference range established. Current interpretive data was last revised 2018. Albumin Creatinine Ratio, Ur 2,008(H) 1 - 29 mg/g TK Urine 08/11/2024 2:53 PM CDT 08/11/2024 5:28 PM CDT Chi Waldrop MD LAB URINE ORDERABLES Final Resul t Performing Organization Address City/[facility] Co de Phone Number TK DARSHANA [id number] [place], [place] [id number] * (ABNORMAL) Lipid panel (08/11/2024 2:53 PM CDT) Cholesterol 147 30 - 199 mg/dL Comment: Interpretive Data Ages < or = 19 years Acceptable: <170 mg/dL Borderline high: 170-199 mg/dL High: >or= 200 mg/dL Ages > or = 20 years Desirable: <200 mg/dL Borderline high: 200-239 mg/dL High: >or= 240 mg/dL Literature References: 1. Expert Panel on Integrated Guidelines for Cardiovascular Health and Risk Reduction in Children and Adolescents. Pediatrics 2011;128:S213 2. NCEP Expert Panel. Circulation 2004;110:227 Current Interpretive Data was last revised on 2017. Triglycerides 180(H) <=149 mg/dL TK Comment: Interpretive Data Ages < or = 9 years Acceptable: <75 mg/dL Borderline high: 75-99 mg/dL High: >or= 100 mg/dL Ages 10 to 20 years Acceptable: <90 mg/dL Borderline high: 90-129 mg/dL High: >or= 130 mg/dL Ages > or = 20 years Desirable: <150 mg/dL Borderline high: 150-199 mg/dL High: 200-499 mg/dL Very high: >or= 499 mg/dL Literature References: 1. Expert Panel on Integrated Guidelines for Cardiovascular Health and Risk Reduction in Children and Adolescents. Pediatrics 2011;128:S213 2. NCEP Expert Panel. Circulation 2004;110:227 Current Interpretive Data was last revised on 2017. HDL 25(L) >=40 mg/dL TK Comment: Interpretive Data Ages < or = 19 years Acceptable: >45 mg/dL Borderline low: 40-45 mg/dL Low: <40 mg/dL Ages > or = 20 years Desirable: >or= 60 mg/dL Low: <40 mg/dL Literature References: 1. Expert Panel on Integrated Guidelines for Cardiovascular Health and Risk Reduction in Children and Adolescents. Pediatrics 2011;128:S213 2. NCEP Expert Panel. Circulation 2004;110:227 Current Interpretive Data was last revised on 2017. LDL, calculated 91 <=129 mg/dL TK Comment: Interpretive Data Ages < or = 19 years Acceptable: <110 mg/dL Borderline high: 110-129 mg/dL High: >or= 130 mg/dL Ages > or = 20 years Optimal: <100 mg/dL Near optimal: 100-129 mg/dL Borderline high: 130-159 mg/dL High: >160 mg/dL Calculated using the Henderson LDL-C estimating equation. This equation was implemented on 2023. Prior to this date LDL-C was estimated using the Friedewald equation. Literature References: 1. Expert Panel on Integrated Guidelines for Cardiovascular Health and Risk Reduction in Children and Adolescents. Pediatrics 2011;128:S213 2. NCEP Expert Panel. Circulation 2004;110:227 3. Santiago M et al. HARRY Cardiol. 2020 July 03;5(5):540-548. doi: 10.1001/[email or web address] Current Interpretive Data was last revised on 2023. Non-HDL Cholesterol 122 mg/dL TK Comment: Interpretive Data Ages < or = 19 years Acceptable: <120 mg/dL Borderline high: 120-144 mg/dL High: >145 mg/dL Ages > or = 20 years When triglycerides are >200 mg/dL, Non-HDL cholesterol is a secondary target of therapy with treatment goals that are 30 mg/dL greater than the LDL cholesterol target. Literature References: 1. Expert Panel on Integrated Guidelines for Cardiovascular Health and Risk Reduction in Children and Adolescents. Pediatrics 2011;128:S213 2. NCEP Expert Panel. Circulation 2004;110:227 Current Interpretive Data was last revised on 2017. Chol/HDL ratio 6 TK Blood 08/11/2024 2:53 PM CDT 08/11/2024 5:28 PM CDT us Chi Waldrop MD [place] [address] [address] [place] [address] * (ABNORMAL) POCT hemoglobin A1c (08/11/2024 1:53 PM CDT) Hemoglobin A1C, POC 8.0(A) 4.0 - 5.6 % Comment:None Capillary blood 08/11/2024 1 :53 PM CDT us Chi Waldrop MD POINT OF CARE TEST ORDERABLES Fi nal Result * TSH (09/14/2022 11:27 AM CDT) Thyroid Stimulating Hormone 2.63 0.30 - 4.20 mcIUnit/mL TK Blood 09/14/2022 11:2 7 AM CDT 09/14/2022 7:14 PM CDT Melly Guerra CANDY FORMING MACHINE OPERATOR LAB BLOOD ORDERABLES Linda l Result TK [place] [address] [place] [address] * DIABETES FOOT EXAM (03/21/2017) Diabetic Foot Exam Unknown us Historical Provider MD HEALTH MAINTENANCE Final Result from Last 3 Months or Most Recently Relevant to Health Maintenance Insurance [facility] Care Teams Skin Diving Teacher Relationship Specialty Start Date End Date Judd Patrick MD [address] [place] [address] PCP - General 05/30/16 Alicia Montoya NP [address] [place] [address] Registered Nurse Endocrinology 03/14/17
[2024-11-28 17:09] LABS: Add Urine Microscopic? YES; Appearance Urine Clear (Clear); Glucose Urine UA 2+ (Negative); Hematocrit 43.1 % (40.0-54.0); Hemoglobin 14.0 g/dL (14.0-18.0); Immature Granulocyte Percent A 1.2 % (0.0-0.0); Leukocyte Esterase Ur Negative LEU/UL (Negative); Lymphocytes Absolute Auto 2.66 K/mm3 (1.10-4.50); Mean Corpuscular HGB Conc 32.5 g/dL (32-36); Mean Corpuscular Hemoglobin 25.5 pg (27.0-31.0); Mean Corpuscular Volume 78.4 fL (78.0-102.0); Nitrate Urine Negative (Negative); Nucleated Red Blood Cells Absolute Auto 0.00 K/mm3 (0.00-0.00); Nucleated Red Blood Cells Perc 0.0 % (0-0.0); Platelet Count Result 368 K/mm3 (150-420); Red Blood Count 5.50 M/mm3 (4.70-6.10); Specific Grav Ur 1.020 (1.010-1.020); White Blood Count 10.4 K/mm3 (4.8-10.8)
[2024-11-28 17:23] LABS: Alanine Aminotransferase 24 U/L (6-50); Albumin Level 3.8 g/dL (3.5-5.1); Alkaline Phosphatase 119 U/L (38-126); Anion Gap 7 mmol/L (4-12); Aspartate Amino Transferase 26 U/L (17-59); Bilirubin,Total 0.5 mg/dL (0.2-1.3); Blood Urea Nitrogen 11 mg/dL (9-20); Calcium 8.9 mg/dL (8.4-10.2); Carbon Dioxide 31 mmol/L (22-30); Chloride 100 mmol/L (98-107); Estimated Glomerular Filt Rate > 60; Glucose 265 mg/dL (65-110); Osmolality Calculated 294 mOsm/kg (285-295); Potassium 4.4 mmol/L (3.4-5.0); Sodium 138 mmol/L (137-145); Total Protein 7.5 g/dL (6.3-8.2)
[2024-11-28 17:53] LABS: Thyroid Stimulating Hormone 3.970 uIU/mL (0.465-4.680)
== END 2024-11-28 16:17 | disposition home or self-care (01) ==
LOC: CHSLAB 16:20
PROVIDERS: PCP Family Medicine; Visit Provider Family Medicine
DX: R60.0 Localized edema (principal); R06.09 Other forms of dyspnea
CPT/HCPCS: 36415; 71046; 80053; 81001; 84443; 85025

== ENCOUNTER 2025-01-17 01:21 | Emergency (ER) | payer OTHER, SELFPAY ==
[2025-01-17 01:22] VITALS: BP 174/99; PULSE 115; RESP 18; TEMP 36.7; O2SAT 97
--- NOTE | 2025-01-17 01:43 | ED.EXTPRO ---
HPI - Extremity Problem General Chief complaint: Extremity Problem,Nontraumatic Stated complaint: Swelling in Legs and Feet Time Seen by Provider: 01/17/25 01:42 Source: patient Mode of arrival: ambulatory Limitations: no limitations History of Present Illness HPI Narrative: Patient is a 29-year-old male with bilateral lower extremity swelling over the past few days. No chest pain or shortness of breath. No nausea vomiting or diarrhea. No fever or chills. No redness of the lower extremities. Just pitting edema of the lower extremities over the past few days. He has chronic lower extremity edema at times but this is more significant and pronounced at this time. No calf pains. MD Complaint: extremity swelling Onset (ago): day(s) (Three) Pain Consistency: constant Location: left, right, lower extremity and other (Bilateral feet up to below the knees) Severity scale (1-10): 2 Quality: aching Radiation: none Relieving factors: nothing Exacerbating factors: walking and palpation Associated symptoms: denies other symptoms Context: other (Patient having bilateral lower extremity edema over the past 3 days. Patient is obese and sedentary at times.) Related Data Home Medications ?Medication ?Instructions ?Recorded ?Confirmed ?Last Taken ?Type atorvastatin 80 mg tablet 80 mg PO DAILY 04/24/20 01/12/25 04/23/20 History insulin aspart U-100 100 unit/mL See Rx Instructions .Route .COMPLEX 04/24/20 01/12/25 04/24/20 History subcutaneous solution losartan 100 mg tablet 100 mg PO DAILY 04/24/20 01/12/25 04/23/20 History chlorthalidone 25 mg tablet 25 mg PO DAILY 03/22/22 01/12/25 Unknown History omeprazole 40 mg capsule,delayed 40 mg PO DAILY 03/22/22 01/12/25 Unknown History release varenicline tartrate 0.5 mg (11)-1 See Rx Instructions .Route .COMPLEX 03/22/22 01/12/25 Unknown History mg (42) tablets in a dose pack ezetimibe 10 mg tablet 10 mg PO DAILY 01/12/25 01/12/25 Unknown History phentermine 37.5 mg capsule 37.5 mg PO DAILY 01/12/25 01/12/25 Unknown History Allergies Allergy/AdvReac Type Severity Reaction Status Date / Time No Known Allergies Allergy Verified 01/12/25 09:52 Review of Systems Review of Systems: All systems reviewed & are unremarkable except as noted in HPI and below Constitutional: Constitutional: Reports no additional constitutional complaints Eyes: Eyes: Reports no additional eye complaints ENT: Reports system reviewed and no additional complaints, except as documented Cardiovascular: Cardiovascular: Reports no additional cardiovascular complaints Respiratory: Respiratory: Reports no additional respiratory complaints Gastrointestinal: Gastrointestinal: Reports no additional gastrointestinal complaints Genitourinary: Genitourinary: Reports no additional male genitourinary complaints Musculoskeletal: Musculoskeletal: Reports no additional musculoskeletal complaints Integumentary/Breasts: Skin/Breast: Reports system reviewed and no additional complaints, except as docu Neurologic: Reports system reviewed and no additional complaints, except as documented Psychiatric: Psychiatric: Reports no additional psychiatric complaints Endocrine: Endocrine: Reports no additional endocrine complaints Hematologic/Lymphatic: Hematologic/Lymphatic: Reports no additional hematologic/lymphatic complaints Allergic/Immunologic: Allergic/Immunologic: Reports no additional allergic/immunologic complaints PMFSH Past Medical History Medical History Morbid obesity with BMI of 50.0-59.9, adult Shortness of breath Dyslipidemia Hypertension Type 1 diabetes mellitus Family History Family History Mother COPD (chronic obstructive pulmonary disease) Heart attack Cerebrovascular accident Social History Social History Smoking status: Current every day smoker Tobacco type: cigarettes Alcohol intake: current Substance use: current Substance use type: marijuana Living arrangements: with family Gender identity (if verbalized by the patient): Male Exam Const: General: healthy appearing Nutritional Appearance: well nourished Orientation/consciousness: patient oriented x3 HENMT: Head: normal to inspection Ears: external ears normal Face/Nose/Sinus: Normal external nose present Eyes: Conjunctivae: conjunctivae normal Pupils: Equal, round and reactive pupils present EOM: EOMs intact bilaterally Neck: Neck: normal visual inspection Chest: Chest palpation & inspection: normal inspection of the chest Resp: Effort & Inspection: normal respiratory effort and not labored Auscultation: clear to auscultation bilaterally and no crackles Cardio: Rate: regular rate Rhythm: regular rhythm Heart sounds: no murmurs GI: Inspection: non-distended GI Palp: Yes Soft to palpation, No Tenderness to palpation present (GI) and No Guarding due to palpation present (GI) Auscultation: normal bowel sounds : General: Yes bladder normal to palpation Back/Spine/Pelvis: Back: no CVA tenderness Skin: General skin exam: normal color Rashes: no rashes Wounds: no wounds Neuro: General: patient oriented x3, moves all extremities and no meningeal signs Extrem: General: normal to inspection, no clubbing, cyanosis or edema and no pedal edema Other: Bilateral lower extremity edema 3+ pitting; no signs of cellulitis; negative for DVT signs; wells score is 0 Psych: Mental Status: mental status grossly normal Affect: normal affect Attitude: cooperative Course Vital Signs Vital signs: Vital Signs Temperature 36.7 C 01/17/25 01:22 Pulse Rate 115 H 01/17/25 01:22 Respiratory Rate 18 01/17/25 01:22 Blood Pressure 174/99 H 01/17/25 01:22 Pulse Oximetry 97 01/17/25 01:22 Oxygen Delivery Room Air 01/17/25 01:22 Temperature 36.7 C 01/17/25 01:22 Pulse Rate 95 01/17/25 03:48 Respiratory Rate 20 01/17/25 03:48 Blood Pressure 142/74 H 01/17/25 03:48 Pulse Oximetry 97 01/17/25 03:48 Oxygen Delivery Room Air 01/17/25 03:48 MDM - Extremity (Nontraumatic) MDM Narrative Medical decision making narrative: Patient is 21-year-old male with bilateral lower extremity edema. We will do a cardiopulmonary workup at this time. We will also include TSH. Lab Data 01/17/25 02:30 01/17/25 02:30 Labs: Lab Results 01/17/25 Range/Units 02:30 WBC 10.6 (4.8-10.8) K/mm3 RBC 5.52 (4.70-6.10) M/mm3 Hgb 13.9 L (14.0-18.0) g/dL Hct 43.0 (40.0-54.0) % MCV 77.9 L (78.0-102.0) fL MCH 25.2 L (27.0-31.0) pg MCHC 32.3 (32-36) g/dL RDW 13.9 (11.6-14.4) % Plt Count 374 (150-420) K/mm3 MPV 9.4 (8.7-11.0) fl Immature Gran % (Auto) 0.8 H (0.0-0.0) % Neut % (Auto) 58.0 (50.0-70.0) % Lymph % (Auto) 32.2 (18.0-42.0) % [place] % (Auto) 7.4 (2.0-11.0) % Eos % (Auto) 0.9 L (1.0-6.0) % Baso % (Auto) 0.7 (0.0-1.0) % Lymph # (Auto) 3.42 (1.10-4.50) K/mm3 [place] # (Auto) 0.79 (0.10-0.90) K/mm3 Eos # (Auto) 0.10 (0.02-0.50) K/mm3 Baso # (Auto) 0.07 (0.00-0.10) K/mm3 Abs Immat Gran (auto) 0.09 H (0.00-0.00) K/mm3 Absolute Neuts (auto) 6.15 (1.70-7.20) K/mm3 Absolute Nucleated RBC 0.00 (0.00-0.00) K/mm3 Nucleated RBC % 0.0 (0-0.0) % PT 10.3 (9.50-12.1) Seconds INR 0.9 APTT 33.1 H (23.9-30.70) Sec Sodium 143 (137-145) mmol/L Potassium 3.4 (3.4-5.0) mmol/L Chloride 103 (98-107) mmol/L Carbon Dioxide 30 (22-30) mmol/L Anion Gap 10 (4-12) mmol/L BUN 8 L (9-20) mg/dL Creatinine 0.89 (0.7-1.3) mg/dL Estim Creat Clear Calc 164 ml/min Estimated GFR > 60 (59 - ) Glucose 71 (65-110) mg/dL Calculated Osmolality 292 (285-295) mOsm/kg Calcium 8.7 (8.4-10.2) mg/dL Total Bilirubin 1.2 (0.2-1.3) mg/dL AST 20 (17-59) U/L ALT 24 (6-50) U/L Alkaline Phosphatase 119 (38-126) U/L Troponin I < 0.012 (0.000-0.034) ng/mL NT-Pro-B Natriuret Pep 29 (19.9-100) pg/mL Total Protein 7.5 (6.3-8.2) g/dL Albumin 4.1 (3.5-5.1) g/dL TSH 4.310 (0.465-4.680) uIU/mL ECG Data EKG #1: Attestation EKG: I personally reviewed and interpreted this ECG as follows: ECG completion date: 01/17/25 ECG completion time: 02:53 Prior ECG tracings: available for review EKG Interpretation: normal rate, sinus rhythm, no ectopy, no ST changes, normal QRS, normal QT, prolonged QT, NL axis and no acute changes Discharge Plan Discharge Clinical Impression: Edema, peripheral Type 1 diabetes mellitus Qualifiers: Diabetes mellitus complication status: with skin complications Diabetes mellitus complication detail: with other skin complication Qualified Code(s): E10.628 - Type 1 diabetes mellitus with other skin complications Patient Disposition: Home Condition: Stable Instructions: Edema (ED) Additional Instructions: Please follow-up with the primary doctor in the next week. You may use the water pills until the swelling is resolved and then stop the medicine. Take the potassium with the Lasix. Patient Language: [place] Islander Prescriptions: New furosemide [Lasix] 20 mg tablet 20 mg PO DAILY Qty: 14 0RF potassium chloride [Klor-Con 10] 10 mEq tablet extended release 10 meq PO DAILY Qty: 30 0RF Rx Instructions: Take with Lasix No Action atorvastatin 80 mg tablet 80 mg PO DAILY insulin aspart U-100 100 unit/mL solution See Rx Instructions .ROUTE .COMPLEX Rx Instructions: INSULIN PUMP losartan 100 mg tablet 100 mg PO DAILY chlorthalidone 25 mg tablet 25 mg PO DAILY omeprazole 40 mg capsule,delayed release(DR/EC) 40 mg PO DAILY varenicline tartrate 0.5 mg (11)- 1 mg (42) tablets,dose pack See Rx Instructions .ROUTE .COMPLEX Rx Instructions: SEE PKG DIRECTIONS phentermine 37.5 mg capsule 37.5 mg PO DAILY Rx Instructions: must administer 30 minutes before or 1-2 hours after breakfast ezetimibe 10 mg tablet 10 mg PO DAILY Follow-up/Referrals: Judd Patrick MD [Primary Care Provider, Internal Medicine] Time of Disposition: 03:46
--- NOTE | 2025-01-17 02:04 | PC.NURSE ---
RESTING ON STRETCHER. CALL LIGHT IN REACH. NO NEEDS VOICED AT THIS TIME
--- NOTE | 2025-01-17 02:10 | PC.NURSE ---
DR MORALES AT THE BEDSIDE
--- NOTE | 2025-01-17 02:15 | ECG_ITS ---
Test Date: 2025-01-17 02:22:37 Measurements Intervals [place] Rate: 94 P: 29 SC: 155 QRS: 19 QRSD: 98 T: 35 QT: 343 QTc: 430 Interpretive Statements SINUS RHYTHM Compared to ECG 09/21/2023 22:12:27 NO SIGNIFICANT CHANGES Electronically Signed On 01-19-2025 12:09:03 TEST ARCHITECT by Charlie Kidd M.D.
--- NOTE | 2025-01-17 02:26 | PC.NURSE ---
GRICELDA WITH LAB AT THE BEDSIDE.
[2025-01-17 02:40] LABS: Hematocrit 43.0 % (40.0-54.0); Hemoglobin 13.9 g/dL (14.0-18.0); Immature Granulocyte Percent A 0.8 % (0.0-0.0); Lymphocytes Absolute Auto 3.42 K/mm3 (1.10-4.50); Mean Corpuscular HGB Conc 32.3 g/dL (32-36); Mean Corpuscular Hemoglobin 25.2 pg (27.0-31.0); Mean Corpuscular Volume 77.9 fL (78.0-102.0); Nucleated Red Blood Cells Absolute Auto 0.00 K/mm3 (0.00-0.00); Nucleated Red Blood Cells Perc 0.0 % (0-0.0); Platelet Count Result 374 K/mm3 (150-420); Red Blood Count 5.52 M/mm3 (4.70-6.10); White Blood Count 10.6 K/mm3 (4.8-10.8)
[2025-01-17 02:47] LABS: Alanine Aminotransferase 24 U/L (6-50); Albumin Level 4.1 g/dL (3.5-5.1); Alkaline Phosphatase 119 U/L (38-126); Anion Gap 10 mmol/L (4-12); Aspartate Amino Transferase 20 U/L (17-59); Blood Urea Nitrogen 8 mg/dL (9-20); Calcium 8.7 mg/dL (8.4-10.2); Carbon Dioxide 30 mmol/L (22-30); Chloride 103 mmol/L (98-107); Estimated CRCL calculation 164 ml/min; Estimated Glomerular Filt Rate > 60; Glucose 71 mg/dL (65-110); Osmolality Calculated 292 mOsm/kg (285-295); Potassium 3.4 mmol/L (3.4-5.0); Sodium 143 mmol/L (137-145); Total Protein 7.5 g/dL (6.3-8.2)
[2025-01-17 02:50] LABS: INR 0.9; Partial Thromboplastin Time 33.1 Sec (23.9-30.70); Prothrombin Time 10.3 Seconds (9.50-12.1)
[2025-01-17 02:56] LABS: NT Pro B Type Natriuretic Pept 29 pg/mL (19.9-100)
[2025-01-17 03:05] LABS: Troponin I < 0.012 ng/mL (0.000-0.034)
--- NOTE | 2025-01-17 03:06 | PC.NURSE ---
PATIENT REPORTS THAT HIS CGM IS READING AT 65. SANDWICH GIVEN AND ZERO SUGAR STARRY GIVEN
[2025-01-17 03:23] LABS: Thyroid Stimulating Hormone 4.310 uIU/mL (0.465-4.680)
[2025-01-17 03:48] VITALS: BP 142/74; PULSE 95; RESP 20; O2SAT 97
--- NOTE | 2025-01-17 03:49 | PC.NURSE ---
PATIENT REPORTS THAT HIS BLOOD GLUCOSE ON CGM IS 56 AFTER EATING SANDWICH. APPLE JUICE GIVEN
[2025-01-20 13:46] LABS: Bilirubin,Total < 0.1 mg/dL (0.2-1.3)
== END 2025-01-17 03:59 | disposition home or self-care (01) ==
PROVIDERS: Emergency Provider Emergency Medicine; PCP Family Medicine
DX: E10.628 Type 1 diabetes mellitus with other skin complications (principal); R60.0 Localized edema; I10 Essential (primary) hypertension; E78.5 Hyperlipidemia, unspecified; F17.210 Nicotine dependence, cigarettes, uncomplicated; Z79.4 Long term (current) use of insulin; Z79.899 Other long term (current) drug therapy
CPT/HCPCS: 36415; 80053; 82948; 83880; 84443; 84484; 85025; 85610; 85730; 93005; 99284

== ENCOUNTER 2025-02-20 15:04 | Outpatient (CLI) | payer OTHER, SELFPAY ==
--- OUTSIDE RECORDS SUMMARY | 2025-02-20 15:07 | XMS_ITS | Clinical Summary ---
Author Organization [facility] Address [address] [place] [address] Care Team Providers Care Engineering Manager Name Role Phone Judd Patrick MD Primary Care Provider [phone] Source Comments [facility],non-owned Affiliates and Associated Physician Practices is amultiple site organization consisting of ambulatory clinics and hospital sitesin [place], [place], [place] and [place]. This disclosure is being madepursuant to the Care Everywhere program and may not contain all information available regarding this patient. Last updated 17.[facility] Allergies No known active allergies Medications * [...] meal snacking without taking insulin. Per the [place] [employer] practice guidelines [Diabetes Care 2015 [...] office visit) Follow-up by telephone (office number: [phone], option #4 or fax number: [phone]) in 2 weeks to review Zain's interval home blood glucose records and make any additional insulin dose adjustments. Return appointment in 2 months Enalapril 5 mg daily. Contact adult cone sewer at [facility] in [place], [place] to schedule an outpatient appointment in [...] meal snacking without taking insulin. Per the [place] [employer] practice guidelines [Diabetes Care 2015 [...] office visit) Follow-up by telephone (office number: [phone], option #4 or fax number: [phone]) in 2 weeks to review Zain's interval [...] before office appointment). Call Pediatric Nephrology at [phone] to schedule return appointment to follow up urinary protein elevation. Return appointment at outreach offices in [place], [place] (near [facility]) - Dr. Pedro Dwyer [address], [place] [address] Measure blood glucose level at least twice [...] 07/15/2014 Assessment & Plan (03/12/2014 11:43 AM COMMUNICATIONS MARKETING INTERN): Assessment: 18 yo with known h/o T1DM [...] today Assessment & Plan (03/12/2014 5:56 AM COMMUNICATIONS MARKETING INTERN): Assessment: Patient with poorly controlled diabetes type [...] and then start regular diet - Consider social media designer consult - Continue IVF D5 1/2NS + [...] after transition to subq insulin. 11. Consult Shop Service Technician. 12. D/c to home later today if [...] - Urine ketones q void until negative -Shop Service Technician consult -Flu shot prior to discharge -Plan for d/c to home today once seen by social media designer Assessment & Plan (11/26/2013 4:05 AM CDT): [...] on file Legal Sex Male 5:41 AM COMMUNICATIONS MARKETING INTERN Gender Identity Not on file Sexual Orientation Not on file Last Filed Vital Signs Vital Sign Reading Time Taken Comments Blood Pressure 120/76 09/29/2015 1:47 PM CDT Pulse 72 03/12/2014 12:40 PM COMMUNICATIONS MARKETING INTERN Temperature 36.6 C (97.8 F) 03/12/2014 12:40 PM COMMUNICATIONS MARKETING INTERN Respiratory Rate 18 03/12/2014 12:40 PM COMMUNICATIONS MARKETING INTERN Oxygen Saturation 98% 03/11/2014 10:04 PM COMMUNICATIONS MARKETING INTERN Inhaled Oxygen Concentration - - Weight 91 [...] A1c POCT 9.5(A) 3.4 - 6.1 % [facility] POCT TESTING QC Verified Yes Yes [facility] PO CT TESTING Blood specimen (specimen) BLOOD SPECIMEN / Unknown 09/29/2015 12:55 PM CDT Michelle Madrid APRN-AWNING FRAME MAKER LAB - POINT OF CARE ORDE RABLES Final Result Performing Organization Address [facility] Co de Phone Number [facility] POCT TESTING [address] [phone] * (ABNORMAL) MICROALB/CREAT RATIO URINE RANDOM PANEL (09/16/2015 4:10 PM CDT) Creatinine Urine 65 20 - 370 mg/dL [facility] Comment: Test Performed at: [employer] [address] IGLESIA ALEXIS DO,MPH Microalbumin Urine 4.2 mg/dL [facility] Comment: Reference Range Not established Test Performed at: [employer] [facility] [address] IGLESIA ALEXIS DO,MPH Microalbumin/Creat inine Ratio 65(H) [...] CDT 09/16/2015 4:11 PM CDT Michelle Madrid APRN-AWNING FRAME MAKER LAB - URINE CHEMISTRY OR DERABLES Final Result Performing Organization Address City/[facility]/ZIP Co de Phone Number [facility] [address] [place] [address] * (ABNORMAL) RENAL FUNCTION PANEL (09/16/2015 4:10 [...] 5.1 g/dL [facility] Comment: Test Performed at: [employer] [address] [place] [address] IGLESIA ALEXIS DO,MPH Blood specimen (specimen) BLOOD SPECIMEN / Unknown 09/16/2015 4:10 PM CDT 09/16/2015 4:11 PM CDT Michelle Madrid COFFEE SHOP MANAGER-AWNING FRAME MAKER LAB - CHEMISTRY ORDERABL ES Final Result [facility] [address] [place] [address] from Last 3 Months or Most Recently Relevant to Health Maintenance Insurance [place] Subscriber Plan / Payer (Ef fective for All Dates) Name:Zain Mcdonald III Relation to Subscriber:Self Name:Zain Mcdonald III Payer ID:Not on file Group ID:Not on file Type:Medicaid [place] Address: [place] [id number] [place] Sub[place] Plan / Payer (Ef fective for All Dates) Name:Zain Mcdonald III Relation to Subscriber:Self Name:Zain Mcdonald III Payer ID:Not on file Group ID:Not on file Type:Medicaid [place] Address: [place] [id number] [place] Sub[place] Plan / Payer (Ef fective for All Dates) Name:Zain Mcdonald III Relation to Subscriber:Self Name:Zain Mcdonald III Payer ID:Not on file Group ID:Not on file Type:Medicaid [place] Address: [place] [id number] MED[place]ID [place]IT - [place] Member Subscriber Plan / Payer (Ef fective for All Dates) Name:Zain Mcdonald III Relation to Subscriber:Self Name:Zain Mcdonald III Payer ID:Not on file Group ID:Not on file Type:Medicaid [place] Address: [place] [id number] [place] BENEFIT [facility] Care Teams Engineering Manager Relationship Specialty Start Date End Date Judd Patrick MD [address] [place] [address] PCP - General Family Medicine 08/31/13
--- OUTSIDE RECORDS SUMMARY | 2025-02-20 15:07 | XMS_ITS | Clinical Summary ---
Author Organization [facility] Address [address] [place] [address] Care Team Providers Care Broadcast Operations Director Name Role Phone Judd Patrick MD Primary Care Provide r Alicia Montoya SECURITY CONTROLS ASSESSOR Unavailable [phone] Allergies No known active allergies Medications omeprazole (PriLOSEC) 40 mg capsule 1 Active insulin glargine (insulin glargine) 100 unit/mL (3 mL) pen for injection Take 40 units BID 15 mL 1 2 Active glucagon (BAQSIMI) 3 mg/actuation spray,non-aerosol Administer 1 spray into one nostril as needed (hypoglycemia) 1 each 2 Active Ozempic 0.25 mg or 0.5 mg(2 mg/1.5 mL) pen injector injection Inject 0.5 mg under the skin every 7 days 9 mL 5 Active benzonatate (TESSALON) 200 mg capsuleIndications :Acute non-recurrent frontal sinusitis Take 1 capsule (200 mg total) by mouth 3 (three) times a day as needed for cough 30 capsule 5 Active varenicline tartrate (CHANTIX) 1 mg tablet 5 Active mupirocin (BACTROBAN) 2 % ointmentIndication s:Abscess of right thigh Apply topically 2 (two) times a day 22 g 5 Active losartan (COZAAR) 100 mg tabletIndications: Hypertension associated with type 2 diabetes mellitus (HCC) Take 1 tablet (100 mg total) by mouth daily 90 tablet 3 5 Active atorvastatin (LIPITOR) 80 mg tabletIndications: Mixed diabetic hyperlipidemia associated with type 1 diabetes mellitus Take 1 tablet (80 mg total) by mouth daily 90 tablet 3 5 Active ezetimibe (ZETIA) 10 mg tabletIndications: Mixed diabetic hyperlipidemia associated with type 1 diabetes mellitus Take 1 tablet (10 mg total) by mouth daily 90 tablet 3 5 026 Active insulin lispro (HumaLOG) 100 unit/mL vial for injectionIndicatio ns:Type 1 diabetes mellitus with hyperglycemia (HCC) DIRECTED WITH INSULIN PUMP TO AVERAGE 200 UNITS PER DAY 190 mL 3 5 Active Dexcom G7 Sensor deviceIndications: Type 1 diabetes mellitus with hyperglycemia (HCC) Continuous glucose monitor. Change every 10 days. 10 each 3 5 Active acetone, urine, test stripIndications:T ype 1 diabetes mellitus with hyperglycemia (HCC) Check urine ketone as needed 100 strip 2 5 Active insulin syringe-needle U-100 (BD Insulin Syringe Ultra-Fine) 1 mL 31 gauge x 15/64 syringeIndications :Type 1 diabetes mellitus with hyperglycemia (HCC) Use to inject insulin 4 times daily if pump failure 400 each 3 5 Active chlorthalidone (HYGROTON) 25 mg tabletIndications: Hypertension associated with type 2 diabetes mellitus (HCC) Take 1 tablet (25 mg total) by mouth daily 90 tablet 1 5 Active alcohol swabs pads, medicatedIndicatio ns:Type 1 diabetes mellitus with hyperglycemia (HCC) Use to clean site to inject insulin 400 each 1 5 Active phentermine (ADIPEX-P) 37.5 mg tablet Take 1 tablet (37.5 mg total) by mouth daily before breakfast 90 tablet 2 5 Active blood-glucose meter (OneTouch Verio Flex meter) miscIndications:Ty pe 1 diabetes mellitus with hyperglycemia (HCC) Check blood sugar 4 times daily 1 each 5 Active blood glucose diagnostic (OneTouch Verio test strips) stripIndications:T ype 1 diabetes mellitus with hyperglycemia (HCC) Check blood sugar 4 times daily 400 strip 2 5 Active ondansetron ODT (ZOFRAN-ODT) 4 mg disintegrating tabletIndications: Type 1 diabetes mellitus with hyperglycemia (HCC) Take 1 tablet (4 mg total) by mouth every 8 (eight) hours as needed for nausea or vomiting 20 tablet 2 5 Active Active Problems Problem Noted Date Diagnosed Date Class 3 severe obesity due t o excess calories with serious comorbidity and body mass index (BMI) of 50.0 to 59.9 in adult 03/19/2024 Assessment & Plan (03/19/2024 4:16 PM ELECTRICAL DESIGNER DRAFTER): Chronic problem. Wegovy 0.25mg weekly sent in to see if insurance will cover for weight loss. Discussed healthy diet and importance of regular physical activity (20- 30min/day, 150min/wk). 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 Will check CMP & TFTs today before leaving. Verified that he uses [employer]. Aware to check results/results letter in [facility]. Will contact by phone if needed. He is to call his PCP re: palpitations; inform him that we marisa thyroid labs today. To ask for holter monitor or appt for eval. Reviewed red flags; what would warrant ED for more emergent eval. 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 Currently taking Atorvastatin 80mg & Zetia 10mg. Last lipid panel: 08/11/24 LDL=91, HP=343. Assessment & Plan (03/19/2024 3:23 PM ELECTRICAL DESIGNER DRAFTER): Chronic problem. Near goal on current Atorvastatin 80mg & Zetia 10mg. Last lipid panel: 07/24/23 LDL=85, VK=583. Assessment & Plan (11/01/2023 2:39 PM CDT): Chronic problem. Near goal on current Atorvastatin 80mg & Zetia 10mg. Last lipid panel: 07/24/23 LDL=85, NP=967. Assessment & Plan (07/24/2023 4:25 PM CDT): Chronic, stable. Continue statin therapy with atorvastatin and Zetia. Update lipid profile Assessment & Plan (04/24/2023 4:14 PM ELECTRICAL DESIGNER DRAFTER): Chronic problem. Not controlled on current Atorvastatin 80mg. Last lipid panel: 05/11/22 BEK=774, PJ=168. Reviewed diet. Assessment & Plan (01/04/2023 4:49 PM CDT): Chronic, uncontrolled Continue Atorvastatin Add zetia Assessment & Plan (09/14/2022 3:20 PM CDT): Chronic problem. Not controlled on current Atorvastatin 80mg. Last lipid panel: 05/11/22 BCU=031, PO=737. Reviewed diet. Assessment & Plan (05/11/2022 2:44 PM ELECTRICAL DESIGNER DRAFTER): Chronic problem, last checked 02/2021. Near goal at that time on current Atorvastatin 80mg. Last lipid panel: 02/03/21 HLI=789, SJ=355. Will update lipid panel today. Verified that he uses [employer]. Aware to check results/results letter in [employer]. Will contact by phone if needed. Assessment & Plan (02/03/2021 4:31 PM ELECTRICAL DESIGNER DRAFTER): Chronic problem. On statin therapy, no changes. Assessment & Plan (03/25/2020 4:50 PM ELECTRICAL DESIGNER DRAFTER): Check fasting lipid profile Low-calorie diet Low-fat [...] (08/22/2019): Added automatically from request for surgery [id number] Assessment & Plan (05/26/2021 4:39 PM CDT): Prescription for Zofran was given Referral to GI with Dr. Kwon Gastroesophageal reflux disease without esophagi tis 08/22/2019 Overview (08/22/2019): Added automatically from request for surgery [id number] Insulin pump status 07/24/2018 Assessment & Plan (12/23/2024 11:21 AM CDT): Blood sugars are in range 5a-7p Pump setting changes: -increase 12a from 5.5 to 5.6 -add 8p 6.1 Current medications: Novolog via T-Slim with CIQ BR: 12a 5.6, 2a 3.5, 6a 3.5, 2p 6, 8p 6.1 CR 3 CF 15 Target 100 AIT 2hrs Assessment & Plan (03/19/2024 4:18 PM ELECTRICAL DESIGNER DRAFTER): No pump setting changes at this time. Assessment & Plan (11/01/2023 3:47 PM CDT): Pump setting changes: -increased 2.75 to 2.85 units/hr Current medications: Novolog via MM 780 G pump BR: 12a 2.85, 6a 3.5, 4p 4.25 CR 4 CF 15 Target 100 AIT 2hrs Assessment & Plan (04/24/2023 4:14 PM ELECTRICAL DESIGNER DRAFTER): Reviewed MM download with Zain. Stressed need to start bolusing with meals & correctional boluses. Assessment & Plan (09/14/2022 3:13 PM CDT): No pump setting changes at this time. Assessment & Plan (05/11/2022 2:44 PM ELECTRICAL DESIGNER DRAFTER): No pump setting changes today. Needs to give correctional/food bolus Assessment & Plan (07/15/2019 2:31 PM CDT): Needs additional training on use of pump; when to bolus, how to extend the bolus. Assessment & Plan (02/20/2019 4:37 PM ELECTRICAL DESIGNER DRAFTER): Change AI to 2 hours. Add new [...] low sensor to 80. Hypertension associated with type 2 diabetes kristal litus 06/06/2018 Assessment & Plan (12/23/2024 10:53 AM CDT): Chronic problem, controlled on current losartan 100mg daily Assessment & Plan (03/19/2024 3:23 PM ELECTRICAL DESIGNER DRAFTER): Chronic problem, controlled on current losartan 100mg daily Assessment & Plan (01/10/2024 4:39 PM ELECTRICAL DESIGNER DRAFTER): Chronic, stable. Continue losartan Update GFR Assessment & Plan (11/01/2023 2:40 PM CDT): Chronic problem, controlled on current losartan 100mg daily, chlorthalidone 25mg daily Assessment & Plan (04/24/2023 4:13 PM ELECTRICAL DESIGNER DRAFTER): Chronic problem, controlled on current losartan 100mg daily. Assessment & Plan (09/14/2022 3:22 PM CDT): Chronic problem, controlled on current losartan 100mg daily. Assessment & Plan (05/11/2022 2:45 PM ELECTRICAL DESIGNER DRAFTER): Chronic problem, controlled on current losartan 100mg daily. Will update labs today. Verified that he uses [employer]. Aware to check results/results letter in [employer]. Will contact by phone if needed. Assessment & Plan (05/26/2021 4:38 PM CDT): With some postural hypotension, chlorthalidone lowered to 15 mg daily Assessment & Plan (02/03/2021 4:30 PM ELECTRICAL DESIGNER DRAFTER): Controlled on current medications, no changes. Assessment & Plan (11/04/2020 5:02 PM CDT): Uncontrolled Low salt diet Exercise Add chlorthalidone Will check a BMP, and aldosterone to renin ratio Assessment & Plan (03/25/2020 4:49 PM ELECTRICAL DESIGNER DRAFTER): Goal blood pressure is less than 140/85 [...] readings. Assessment & Plan (02/20/2019 4:37 PM ELECTRICAL DESIGNER DRAFTER): Controlled on current medications. Continue plan. Assessment & Plan (11/21/2018 12:21 PM CDT): With microalbuminuria Continue Losartan Assessment & Plan (08/15/2018 2:40 PM CDT): Controlled on current medications. Assessment & Plan (06/06/2018 4:08 PM CDT): Goal blood pressure is less than 140/85 Low salt diet recommended Daily aerobic exercise Start Arron. Type 1 diabetes mellitus with hyperglycemia 05/04 Overview (07/28/2016): Type 1 diabetes mellitus with hyperglycemia Assessment & Plan (12/23/2024 11:27 AM CDT): Chronic problem. A1c not at goal & worsened from 8.0% 08/11/24 to now 8.4%. He declined moving to U200 as he could not keep his pump in CIQ. Blood sugars are in range 5a-7p Pump setting changes: -increase 12a from 5.5 to 5.6 -add 8p 6.1 Current medications: Novolog via T-Slim with CIQ BR: 12a 5.6, 2a 3.5, 6a 3.5, 2p 6, 8p 6.1 CR 3 CF 15 Target 100 AIT 2hrs UTD on DM eye exam: 09/08/24 severe PDR OU wo DME [facility] in [place] Discussed with Zain Mcdonald: Strive for regular [...] skin breakdown and infection. Assessment & Plan (03/19/2024 4:20 PM ELECTRICAL DESIGNER DRAFTER): Chronic problem. A1c decreased minimally from 8.7% 01/10/24 to now 8.6%. reviewed lifestyle. Needs to increase activity. Watch snacks. Reviewed [employer] download with Zain. States that he's to receive a new Tandem pump tomorrow. E-mail sent to Lonnie at [employer] re: new pump & training. Contact info for Zain given to them for training. Current medications: Phentermine 37.5mg Ozempic 0.25mg weekly (samples given) Novolog via MM 780 G pump BR: 12a 3.25, 4a 3.25, 6a 3.5, 4p 4.75 CR 3.5 CF 15 Target 100 AIT 2hrs UTD on DM eye exam (02/2024 at [facility]). Has appt 04/16/24 [facility] in [place]. Letter sent to get copy of report. [...] infection. Assessment & Plan (01/10/2024 4:39 PM ELECTRICAL DESIGNER DRAFTER): Chronic, stable but uncontrolled Importance of diet [...] settings Assessment & Plan (04/24/2023 4:13 PM ELECTRICAL DESIGNER DRAFTER): Chronic problem. Uncontrolled and A1c worsened from [...] AIT 2hrs DM eye exam 03/2023 at [facility] and [facility] 02/2023. Letter sent to get copy of reports. UTD on labs. Discussed with Zain Destiny Mcdonald: Strive for regular exercise (30min most [...] The patient also will meet with the [employer] rep to go over his pump download [...] vision issues x4 days--to stop at [facility] today (call if not there) to get appt for emergent eval (vision loss L eye). UTD on labs. Assessment & Plan (05/11/2022 2:43 PM ELECTRICAL DESIGNER DRAFTER): Chronic problem, not at goal. Has worsened [...] update labs today. Verified that he uses [employer]. [employer] to check results/results letter in [employer]. Will contact by phone if needed. Assessment & Plan (01/17/2022 3:58 PM ELECTRICAL DESIGNER DRAFTER): Hba1c was Lab Results Component Value Date [...] also. Assessment & Plan (02/03/2021 4:34 PM ELECTRICAL DESIGNER DRAFTER): Chronic problem, not at goal. Is noticing [...] loss Assessment & Plan (03/25/2020 4:53 PM ELECTRICAL DESIGNER DRAFTER): Hba1c was Lab Results Component Value Date [...] TFT's. Assessment & Plan (02/20/2019 4:39 PM ELECTRICAL DESIGNER DRAFTER): A1c 8.0. Advised that he needs to [...] automode at that time. He met with life skills trainer today as well. Assessment & Plan (06/06/2018 2:12 PM CDT): Your Hba1c today was: Lab Results Component Value Date Your goal hba1c is under 7.0 to prevent nursing home diabetes complications ( eye , kidney and [...] of 45.0 to 49.9 in adult 04/24/2023 Assessment & Plan (04/24/2023 4:15 PM ELECTRICAL DESIGNER DRAFTER): Chronic problem. Discussed healthy diet and importance of regular physical activity (20- 30min/day, 150min/wk). Class 3 severe obesity due t o excess calories with serious comorbidity and body mass index (BMI) of 45.0 to 49.9 in adult 05/11/2022 Assessment & Plan (07/24/2023 4:26 PM CDT): Chronic, worsening Continue phentermine Patient has not been able to tolerate GLP 1 . Diet and exercise Assessment & Plan (05/11/2022 2:37 PM ELECTRICAL DESIGNER DRAFTER): Discussed healthy diet and importance of regular physical activity (20- 30min/day, 150min/wk). 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 Has lost 12# since 01/2022 since starting Mounjaro. Skin rash 03/25/2020 05/11/2022 Assessment & Plan (03/25/2020 4:51 PM ELECTRICAL DESIGNER DRAFTER): Check 24 hour urine for free cortisol Check CBC and TSH Advised on seeing a merchant banker Morbid obesity ([facility]) 02/20/201911/2022 Assessment & Plan (08/23/2021 4:15 [...] discussed. Assessment & Plan (02/20/2019 4:36 PM ELECTRICAL DESIGNER DRAFTER): Needs to be exercising more Type 1 [...] statin Assessment & Plan (02/20/2019 4:37 PM ELECTRICAL DESIGNER DRAFTER): Needs to focusing more on low fat [...] Encounters Date Type Department Care Team Description 12/25/2024 Orders Only [facility] Diabetes and Endocrinology [address] [place] [address] [phone] Melly Guerra NP Type 1 diabetes mellitus with hyperglycemia (HCC) 12/23/2024 10:30 AM CDT Office Visit [facility] Diabetes and Endocrinology [address] [place] [address] [phone] Melly Guerra NP Type 1 diabetes mellitus with hyperglycemia (HCC) (Primary Dx); Hypertension associated with type 2 diabetes mellitus (HCC); Mixed diabetic hyperlipidemia associated with type 1 diabetes mellitus; Insulin pump status 12/14/2024 Results Follow-Up [facility] at [address] [phone] Katlyn Nelson PA Aerobic and anaerobic culture and gram stain Abscess Leg, right 12/08/2024 6:15 PM CDT Office Visit [facility] [address] [phone] Saima Rangel NP Abscess of right thigh (Primary Dx) 12/08/2024 5:58 PM CDT - 12/08/2024 11:59 PM CDT Hospital Encounter [address] [address] Abscess of right thigh Discharge Disposition: Discharge to home or self care 11/24/2024 3:30 PM CDT Office Visit [facility] Minimally Invasive Surgery [address] [place] [address] Medical Office Building [address] [place] [phone] Jesu Jacob NP Morbid obesity (HCC) (Primary Dx); BMI 50.0-59.9, adult (HCC); Obstructive sleep apnea; Gastroesophageal reflux disease, unspecified whether esophagitis present; Primary hypertension; Hyperlipidemia, unspecified hyperlipidemia type from Last 3 Months Surgical History Surgery Date Site/Laterality Comments NO PAST SURGERIES Medical History Medical History Date Comments Hypercholesterolemia High choles terol Hypertension Hypertension Hypoglycemia Anxiety 03/05/2012 Depression 03/05/2012 GERD (gastroesophageal reflux disease) 2014 Sleep apnea Diabetes mellitus type I 06/26/1999 [...] Date Smoking Tobacco: Every Day Cigarettes 1.3 10 Started: 03/05/2015 Smokeless Tobacco: Never Alcohol Use Standard Drinks/Week Comments Not Currently [...] on file Legal Sex Male 9:11 PM ELECTRICAL DESIGNER DRAFTER Gender Identity Male 07/15/2019 12:10 PM CDT Sexual Orientation [place] 03/18/2024 1: 56 AM ELECTRICAL DESIGNER DRAFTER Last Filed Vital Signs Vital Sign Reading Time Taken Comments Blood Pressure 122/80 12/23/2024 10:36 AM CDT Pulse 98 12/23/2024 10:36 AM CDT Temperature 36.5 C (97.7 F) 12/08/2024 5:38 PM CDT Respiratory Rate 18 12/23/2024 10:3 6 AM CDT Oxygen Saturation 97% 12/08/2024 5:38 PM CDT Inhaled Oxygen Concentration - - Weight 166.5 kg (367 lb 1.6 oz) 025 10:36 AM CDT Height 170.2 cm (5' 7.01) 12/23/2024 1 0:36 AM CDT Body Mass Index 57.48 12/23/2024 10:36 AM CDT Plan of Treatment Health Maintenance Due [...] exists TSH Level 09/15/2023 09/14/2022, 12/04/2020, 03/26/2020 Covid-19 Vaccine (3 - 2024-2 6 season) 2024 07/06/2020, 06/15/2020 Influenza Vaccine (#1) 2024 1, 03/24/2004, 02/25/2002 Hemoglobin A1C 06/23/2025 12/23/2024, 06/0 11/2024, 03/19/2024, Additional history exists Albumin Creatinine Ratio, Urine 08/11/2025 08/11/2024, 07/24/2023, 05/11/2022, Additional history exists Depression Screening 08/11/2025 08/11/2024, 01/10/2024, 08/23/2021, Additional history exists Lipid Panel 08/11/2025 08/11/2024, 2 03/2023, 05/11/2022, Additional history exists eGFR 08/11/2025 08/11/2024, 11/0 09/2023, 09/14/2022, Additional history exists Dilated Eye Exam 09/08/2025 09/08/2024, 11/2023, 03/07/2023, Additional history exists Foot Exam 12/23/2025 12/23/2024, 10/04, 05/11/2022, Additional history exists Hepatitis B Screening Completed 04/15/1997 , 1996, 1996 Procedures Procedure Name Priority Date/Time Associated Diagnosis Comments POCT HEMOGLOBIN A1C Routine 12/23/2024 1 0:49 AM CDT Type 1 diabetes mellitus with hyperglycemia (HCC) POCT GLUCOSE Routine 12/23/2024 10:43 AM CDT Type 1 diabetes mellitus with hyperglycemia (HCC) WY INCISION & DRAINAGE ABSCESS SIMPLE/SINGLE Routine 12/08/2024 6:15 PM CDT Abscess of right thigh AEROBIC AND ANAEROBIC CULTURE AND GRAM STAIN Routine 12/08/2024 5:58 PM CDT Abscess of right thigh DIABETES EYE EXAM Routine 09/08/2024 EGFR Routine 08/11/2024 2:53 PM CDT Hypertension [...] Relevant to Health Maintenance Results * (ABNORMAL) POCT hemoglobin A1c (12/23/2024 10:49 AM CDT) Hemoglobin A1C, POC 8.4(A) 4.0 - 5.6 % Blood 12/23/2024 10:4 9 AM CDT us Melly Guerra NP POINT OF CARE TEST ORDERA BLES Final Result * POCT glucose (12/23/2024 10:43 AM CDT) Glucose Blood, POC 173 Normal Fasting 70 - 100, Random <200 mg/dL Blood 12/23/2024 10:4 3 AM CDT Melly Guerra SECURITY CONTROLS ASSESSOR POINT OF CARE TEST ORDERA BLES Final Result * WY INCISION & DRAINAGE ABSCESS SIMPLE/SINGLE (12/08/2024 6:15 PM CDT) Narrative Saima Rangel NP - 12/08/2024 6:15 PM CDT Saima Rangel NP 12/08/2024 7:36 PM Incision and Drainage Performed by: Saima Rangel NP Authorized by: Saima Rangel NP Consent Given by: Patient Verbal consent obtained: Yes Type: Abscess Body area: Lower extremity Location details: Right leg Anesthesia: Local infiltration Medications: 1 mL lidocaine-EPINEPHrine 1 %-1:100,000 Scalpel size: 11 Incision depth: Dermal Complexity: Simple Drainage: Purulent and serosanguinous Drainage amount: Moderate Packing material: 1/4 in iodoform gauze Patient tolerance: Patient tolerated the procedure well with no immediate complications Saima Rangel NP IN CLINIC/BEDSIDE ORDERABL ES Final Result * (ABNORMAL) Aerobic and anaerobic culture and gram stain Abscess Leg, right (12/08/2024 5:58 PM CDT) Direct Specimen Exam Stain: Moderate polymorphonuclear leukocytes seen. Few Gram Positive Cocci Comment:Testing performed by : [facility], [address] [facility] [place]., [address] Report Final Report: Moderate Mixed aerobic and anaerobic microorganisms (.) TK Comment:Testing performed by : [facility], [address] [facility] [place]., [address] Organism MIXED AEROBIC AND ANAEROBIC MICROORGANISMS TK Abscess (Leg, right) 12/08/2024 5:58 PM CDT 12/09/2024 1:40 AM CDT Narrative TK - 12/14/2024 2:55 PM CDT Specimen received on an ESwab. Testing performed by [facility] ([phone]) Specimens submitted from normally sterile body sites will have all bacterial morphotypes identified. Specimens that contain grossly mixed maci and/or are from body sites that are not normally sterile will be examined for Staphylococcus aureus, Pseudomonas aeruginosa, beta-hemolytic strep, vancomycin-resistant Enterococcus, Bacteroides, Parabacteroides, Clostridium perfringens and fungus. If any of these are isolated, the organism will be reported. Current interpretive data was last revised on 2019. Saima Rangel NP LAB MICROBIOLOGY - GENERAL ORDERABLES Final Result [facility] [place] [address] [address] Department [place] [address] * (ABNORMAL) DIABETES EYE EXAM (09/08/2024) SCRIBED DIABETIC DILATED EYE EXAM Abnormal 09/08/2024 Historical Provider HEALTH MAINTENANCE Edited Result - Final * eGFR (08/11/2024 2:53 PM CDT) eGFR [...] of Race in Diagnosing Kidney Disease, JASN 202). The CKD-EPI equation should not be used for patients with unstable renal function and has not been validated in children and those over 70. Current interpretive data was last reviewed 2021. Blood 08/11/2024 2:53 PM CDT 08/11/2024 5:31 PM CDT Chi Waldrop MD LAB BLOOD ORDERABLES Final Resul t Performing Organization Address [facility] [phone] [facility] [place] [address] * (ABNORMAL) Albumin Creatinine Ratio, Urine (08/11/2024 2:53 PM CDT) Albumin Ur 1,953.6 mg/L Comment: Interpretive Data No reference range established. Current interpretive data was last revised 2018. Creatinine Ur 97.3 mg/dL [facility] Comment: Interpretive Data No reference range established. Current interpretive data was last revised 2018. Albumin Creatinine Ratio, Ur 2,008(H) 1 - 29 mg/g [facility] Urine 08/11/2024 2:53 PM CDT 08/11/2024 5:28 PM CDT Result [facility] Chi Waldrop MD LAB URINE ORDERABLES Final Resul t Performing Organization Address [facility] Co de Phone Number [place] [address] [address] [place] [address] * (ABNORMAL) Lipid panel (08/11/2024 2:53 PM [...] revised on 2017. Triglycerides 180(H) <=149 mg/dL [facility] Comment: Interpretive Data Ages < or = [...] mg/dL High: >160 mg/dL Calculated using the Santiago LDL-C estimating equation. This equation was implemented on 2023. Prior to this date LDL-C was estimated using the Friedewald equation. Literature References: 1. Expert Panel on Integrated Guidelines for Cardiovascular Health and Risk Reduction in Children and Adolescents. Pediatrics 2011;128:S213 2. NCEP Expert Panel. Circulation 2004;110:227 3. Santiago Del Rosario. HARRY Cardiol. 2020 July 03;5(5):540-548. doi: 10.1001/[email or web address] [...] last revised on 2017. Chol/HDL ratio 6 CERNER [facility] Blood 08/11/2024 2:53 PM CDT 08/11/2024 5:28 PM CDT Chi Waldrop MD LAB BLOOD ORDERABLES Final Resul t Performing Organization Address City/[facility]/ZIP Co de Phone Number [phone] [address] [employer] [place] [address] * TSH (09/14/2022 11:27 AM CDT) Thyroid Stimulating Hormone 2.63 0.30 - 4.20 mcIUnit/mL CERNER CH Blood 09/14/2022 11:2 7 AM CDT 09/14/2022 7:14 PM CDT Melly Guerra NP LAB BLOOD ORDERABLES Linda l Result Performing Organization Address City/[facility] Co de Phone Number [facility] [address] [place] [address] * DIABETES FOOT EXAM (03/21/2017) Diabetic Foot Exam Unknown Hien Kern MD HEALTH MAINTENANCE Final Result from Last 3 Months or Most Recently Relevant to Health Maintenance Insurance [facility] Care Teams Broadcast Operations Director Relationship Specialty Start Date End Date Judd Patrick MD [address] [place] [address] PCP - General 05/30/16 Alicia Montoya NP [address] [place] [address] Registered Nurse Endocrinology 03/14/17
--- OUTSIDE RECORDS SUMMARY | 2025-02-20 15:07 | XMS_ITS | Clinical Summary ---
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
--- OUTSIDE RECORDS SUMMARY | 2025-02-20 15:07 | XMS_ITS | Encounter Summary ---
Author Organization [facility] Address [address] [place] [address] Care Team Providers Care Manager Of Pmo Name Role Phone Dinesh Macias MD Primary Care Provider [phone] Judd Patrick MD Primary Care Provider [phone] Reason for Visit * Reason Onset Date Comments MEDICATION REFILL 07/15/2013 Encounter Details Date Type Department Care Team (Late st Contact Info) Description 07/15/2013 Refill [facility] [address] [address] Pedro Dwyer MD [address] [place] [id number] MEDICATION REFILL Social History Tobacco Use Types Packs/Day Years Used Date Smoking Tobacco: Never Smokeless Tobacco: Never Alcohol Use Standard Drinks/Week Comments No 0 (1 standard drink = 0.6 oz pur e alcohol) Sex and Gender Information Value Date Recorded Sex Assigned at Not on file 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 Answer Date of Assessment Author No 07/15/2013 7:29 AM Rupa Edward APRN-CNP * Is person blind or have serious difficulty seeing? Answer Date of Assessment Author No 07/15/2013 7:29 AM Rupa Edward APRN-CNP * Does person have serious difficulty walking/climbing stairs? Answer Date of Assessment Author No 07/15/2013 7:29 AM CDT Rupa Dewitt APRN-CNP * Does person have difficulty dressing/bathing? Answer Date of Assessment Author No 07/15/2013 7:29 AM CDRupa Jones APRN-CNP * Does person have difficulty doing errands alone? Answer Date of Assessment Author No 07/15/2013 7:29 AM CDRupa Jones APRN-CNP documented as of this encounter Mental Status * Does person have difficulty concentrating/remembering/making decisions? Answer Entry Date Author No 07/15/2013 7:29 AM CDRupa Jones APRN-CNP documented in this encounter Plan of Treatment Not on file documented as of this encounter Visit Diagnoses Not on filedocumented in this encounter Care Teams Manager Of Pmo Relationship Specialty Start Date End Date Dinesh Macias MD [address] [place] [address] PCP - General 06/24/09 08/30/13 Judd Patrick MD [address] [place] [phone] PCP - General Family Medicine 08/31/13 documented as of this encounter
--- OUTSIDE RECORDS SUMMARY | 2025-02-20 15:07 | XMS_ITS | Encounter Summary ---
Author Organization [facility] Address [address] [place] [address] Care Team Providers Care Compliance Paralegal Name Role Phone Judd Patrick MD Primary Care Provider [phone] Reason for Visit * Reason Onset Date Comments MEDICATION REFILL 11/07/2013 Encounter Details Date Type Department Care Team (Late st Contact Info) Description 11/07/2013 Refill [facility] - Diabetes [address] [address] Michelle Madrid APRN-CARMENZA Retired MEDICATION REFILL Social History Tobacco Use Types Packs/Day Years Used Date Smoking Tobacco: Never Smokeless Tobacco: Never Alcohol Use Standard Drinks/Week Comments No 0 (1 standard drink = 0.6 oz pur e alcohol) Sex and Gender Information Value Date Recorded Sex Assigned at Not on file 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
--- OUTSIDE RECORDS SUMMARY | 2025-02-20 15:07 | XMS_ITS | Encounter Summary ---
Author Organization [facility] Address [address] [place] [address] Care Team Providers Care Finished Garment Inspector Name Role Phone Judd Patrick MD Primary Care Provider [phone] Reason for Visit * Reason Onset Date Comments MEDICATION REFILL 11/06/2013 Encounter Details Date Type Department Care Team (Late st Contact Info) Description 11/06/2013 Refill [facility] - Diabetes [address] [address] Michelle Madrid APRN-CARMENZA Retired MEDICATION REFILL Social History Tobacco Use Types Packs/Day Years Used Date Smoking Tobacco: Never Smokeless Tobacco: Never Alcohol Use Standard Drinks/Week Comments No 0 (1 standard drink = 0.6 oz pur e alcohol) Sex and Gender Information Value Date Recorded Sex Assigned at Not on file 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
--- NOTE | 2025-02-20 16:24 | WPDSIXMINUTE ---
Six Minute Walk Procedure Procedure Performed Pulmonary Stress Test (6 min walk) Six Minute Walk Six Minute Walk: This is a 6 minute walk test. The test was performed and interpreted in accordance with the 2014 ERS/ATS task force guidelines. Findings: The patient's resting room air oxygen saturation measured by pulse oximetry was 96%, the heart rate was 97 bpm, and the modified Rafael dyspnea score was 3. Patient ambulated for 305 meters and oxygen saturation remained 93 to 95%. At the end of the study the heart rate was 125 bpm and the modified Rafael dyspnea score was 4. The patient did not qualify for supplemental oxygen at rest or with ambulation. There are no prior studies for comparison.
--- NOTE | 2025-02-20 16:26 | WPDPFTINT ---
PFT Procedure Performed PFT Procedure Performed Spirometry with Pre/Post Bronchodilator Plethysmography (Lung Vol) Diffusing Cap (DLCO) Flow Vol Loop PFT Interpretation This is a pulmonary function test with pre and post-bronchodilator spirometry, plethysmography and diffusing capacity. The test was performed and results interpreted in accordance with the 2019 and 2005 ATS/ERS Task Force guidelines respectively using the Global Lung Function Initiative-2012 reference equations. Patient demonstrated good effort and cooperation. Reproducibility criteria were met. The quality of the pre bronchodilator spirometry maneuver was Grade A and post bronchodilator spirometry maneuver was Grade A. Findings: Spirometry: The contour the inspiratory and expiratory flow tracing are normal. The pre bronchodilator FVC is 3.33 L, 80% predicted. Pre bronchodilator FEV1 2.72 L, 78% predicted. Pre bronchodilator FEV1: FVC ratio 82%. Post bronchodilator FVC is 3.61 L, representing an 8% increase. Post bronchodilator FEV1 is 2.96 L, representing a 9% increase. Post bronchodilator FEV1: FVC ratio 82%. Plethysmography: Total lung capacity 4.90 L, 89% predicted. Functional residual capacity is 2.07 L, 75% predicted. Residual volume is 1.41 L, 108% predicted. Diffusing capacity: The diffusing capacity unadjusted for hemoglobin and carboxyhemoglobin is 27.9, 81% predicted. The diffusing capacity adjusted for alveolar volume is 6.28, 116% predicted. Impression: The spirometry is normal without evidence of an obstructive abnormality. There is no significant improvement after inhaling a single dose of albuterol. The lung volumes are normal. The diffusing capacity is normal. There are no prior studies for comparison
== END 2025-02-20 15:05 | disposition home or self-care (01) ==
PROVIDERS: PCP Family Medicine; Visit Provider Nurse Practitioner Family
DX: R06.02 Shortness of breath (principal)
CPT/HCPCS: 94060; 94618; 94726; 94729